=== PATIENT | male | born 1990 | race Caucasian/White ===

== ENCOUNTER 2022-03-03 06:27 | Outpatient (REF) | payer BC, SELFPAY ==
[2022-03-03 11:41] LABS: MANUAL DIFF FLAG NO
[2022-03-03 11:44] LABS: Appearance Urine CLEAR; Color Urine YELLOW; Glucose Urine UA NEG (NEG); Leukocyte Esterase Urine NEG (NEG); Nitrite Urine NEG (NEG); PH 6.5 (5.0-8.0); UACC Culture Trigger NO; Urine Blood TRACE (NEG); Urine Ketones NEG (NEG); Urine Protein NEG (NEG-TRACE)
[2022-03-03 11:51] LABS: Basophils Percent Auto 0.4 % (0-2); Eosinophils Absolute Auto 0.1 X10*3/uL (0.0-0.4); Hematocrit 46.7 % (42.0-52.0); Hemoglobin 15.9 g/dl (14.0-18.0); Lymphocytes Absolute Auto 1.9 X10*3/uL (1.2-4.9); Lymphocytes Percent Auto 39.5 % (20-40); Mean Corpuscular Hemoglobin 32.3 pg (27.0-33.0); Mean Corpuscular Volume 94.9 fL (80.0-98.0); Monocytes Absolute Auto 0.4 X10*3/uL (0.1-1.2); Monocytes Percent Auto 8.3 % (2-11); Neutrophils Absolute Auto 2.3 x10*3/uL (2.0-8.3); Neutrophils Percent Auto 48.8 % (45-73); Platelet Count 254 X10*3/uL (160-400); Red Blood Count 4.92 X10*6/uL (4.60-5.80); Red Cell Distribution Width 11.9 % (11.0-16.0); White Blood Count 4.7 X10*3/uL (4.8-10.8)
[2022-03-03 12:21] LABS: Alanine Aminotransferase 22 U/L (0-40); Albumin Level 4.5 g/dL (3.5-5.0); Alkaline Phosphatase 49 U/L (39-117); Anion Gap 12 (12-20); Aspartate Amino Transferase 20 U/L (5-37); Bilirubin Total 0.7 mg/dL (0.0-1.0); Blood Urea Nitrogen 15 mg/dL (9-16); Calcium 9.5 mg/dL (8.4-10.2); Carbon Dioxide 26 mmol/L (22-29); Chloride 105 mmol/L (96-108); Cholesterol 215 mg/dL; Estimated Glomerular Filt Rate > 60; Glucose Fasting 92 mg/dL (60-99); HDL Cholesterol 78 mg/dL; LDL Cholesterol Calculated 117 mg/dl; Potassium 4.4 mmol/L (3.3-5.1); Sodium 139 mmol/L (135-145); Total Protein 7.3 g/dL (6.5-8.0); Triglycerides 104 mg/dL; WBC Urine 0-2 /HPF (0-4)
[2022-03-03 12:26] LABS: TSH reflex Free T4 0.29 uIU/mL (0.32-4.0)
[2022-03-03 13:02] LABS: Free T4 (Free Thyroxine) 0.94 ng/dL (0.71-1.85)
== END 2022-03-03 06:28 | disposition home or self-care (01) ==
LOC: HO.HMGCLDS 06:27
PROVIDERS: PCP Nurse Practitioner Family; Visit Provider Nurse Practitioner Family
DX: Z00.00 Encounter for general adult medical examination without abnormal findings (principal); R79.89 Other specified abnormal findings of blood chemistry
CPT/HCPCS: 36415; 80053; 80061; 81001; 84439; 84443; 85025

== ENCOUNTER 2022-03-08 06:02 | Outpatient (REF) | payer BC, SELFPAY ==
[2022-03-09 08:56] LABS: Triiodothyronine T3 Free 3.9 pg/mL (2.3-4.2)
[2022-03-09 13:20] LABS: Thyroid Peroxidase Antibodies 1 IU/mL (<9)
[2022-03-11 17:16] LABS: Thyrotropin Receptor Antibody <1.00 IU/L (<=2.00)
== END 2022-03-08 06:03 | disposition home or self-care (01) ==
LOC: HO.HMGCLDS 06:02
PROVIDERS: Visit Provider Nurse Practitioner Family
DX: R79.89 Other specified abnormal findings of blood chemistry (principal)
CPT/HCPCS: 36415; 83520; 84443; 84481; 86376

== ENCOUNTER 2022-03-31 14:51 | Outpatient (REF) | payer BC, SELFPAY | END 2022-03-31 14:52 | disposition home or self-care (01) | LOC: HO.US 14:51 | PROVIDERS: Visit Provider Nurse Practitioner Family | DX: Z13.89 Encounter for screening for other disorder (principal) ==

== ENCOUNTER 2022-03-31 14:53 | Outpatient (REF) | payer BC, SELFPAY ==
--- NOTE | ~2022-03-31 | US_ITS ---
EXAMINATION: US THYROID CLINICAL INFORMATION: Low TSH. COMPARISON: None TECHNIQUE: Linear transducer grayscale and color Doppler examination with attention to the region of the thyroid. FINDINGS: SIZE: Measurements of the thyroid lobes and nodules are given in sagittal, anteroposterior and transverse dimensions respectively. Right Thyroid Lobe: 5.01 x 1.37 x 1.49 cm, volume 5.38 mL. Parenchyma: The gland echotexture is homogeneous. Thyroid vascularity is normal. Left Thyroid Lobe: 5.89 x 1.53 x 1.71 cm, volume 8.06 mL. Parenchyma: The gland echotexture is homogeneous. Thyroid vascularity is normal. Isthmus: 0.31 cm in maximum AP dimension. Estimated total number of nodules greater than or equal to 1 cm: 0. [employer] nodules are described as follows: 1. Location: Left superior. Size: 0.40 x 0.23 x 0.41 cm, volume 0.02 mL. Nodule characteristics: Composition: Cystic(0). ACR TI-RADS total points: 0 ACR TI-RADS category: 1 2. Location: Left mid. Size: 0.31 x 0.22 x 0.22 cm, volume 0.008 mL. Nodule characteristics: Composition: Cystic(0). ACR TI-RADS total points: 0 ACR TI-RADS category: 1 3. Location: Left mid. Size: 0.35 x 0.17 x 0.19 cm, volume 0.006 mL. Nodule characteristics: Composition: Cystic(0). ACR TI-RADS total points: 0 ACR TI-RADS category: 1 NODES: No lymphadenopathy is seen in the tissue surrounding the thyroid gland. US/US thyroid IMPRESSION: No further routine follow-up is needed. ACR TI-RADS RECOMMENDATION REFERENCE: Ultrasound-guided fine-needle aspiration, followup ultrasound, no further follow up. * TR1 (0 point) and TR 2 (2 points): No FNA or follow up * TR3 (3 points): FNA if more than or equal to 2.5 cm in maximum dimension, followup ultrasound in 1, 3 and 5 years if 1.5 to 2.4 cm in maximum dimension. * TR4 (4-6 points): FNA if more than or equal to 1.5 cm in maximum dimension, followup ultrasound in 1, 2, 3 and 5 years if 1 to 1.4 cm in maximum dimension. * TR5 (more than or equal to 7 points): FNA if more than or equal to 1 cm in maximum dimension, followup ultrasound every year for 5 years if 0.5 to 0.9 cm in maximum dimension. * TR3, TR4 or TR5 nodules that are below the size threshold for follow up receive no follow up.
--- NOTE | ~2022-03-31 | US_ITS ---
EXAMINATION: US SCROTUM CLINICAL INFORMATION: Testicular pain, unspecified. COMPARISON: None TECHNIQUE: A sonogram of the scrotum was performed assessing fan-scale appearance and color Doppler flow. Spectral Doppler analysis of the arterial and venous flow were performed in the testes bilaterally. FINDINGS: RIGHT: Right testicle measures 5.06 x 2.38 x 3.35 cm, volume 21.1 mL. No focal testicular parenchymal lesions are visualized. Spectral Doppler analysis of the arterial and venous flow is normal in the right testis. Right epididymal head is normal in size. Right epididymal Doppler flow is normal. Small right hydrocele. LEFT: Left testicle measures 4.78 x 2.15 x 3.77 cm, volume 20.3 mL. No focal testicular parenchymal lesions are visualized. Spectral Doppler analysis of the arterial and venous flow is normal in the left testis. Left epididymal head cyst measures 0.8 x by 0.6 x 1.5 cm. Left epididymal Doppler flow is normal. Small left hydrocele. US/US scrotum IMPRESSION: Left epididymal head cyst. Small bilateral hydroceles.
== END 2022-03-31 14:54 | disposition home or self-care (01) ==
LOC: HO.HMGCX 14:53
PROVIDERS: Visit Provider Nurse Practitioner Family
DX: N50.819 Testicular pain, unspecified (principal); R79.89 Other specified abnormal findings of blood chemistry
CPT/HCPCS: 76536; 76870

== ENCOUNTER 2023-07-22 17:57 | Emergency (ER) | payer BC, SELFPAY ==
--- NOTE | ~2023-07-22 | XR_ITS ---
EXAMINATION: XR HAND, LEFT CLINICAL INFORMATION: Pain second metacarpal. COMPARISON: None available. TECHNIQUE: PA, lateral, and oblique views of the left hand. FINDINGS: The bones and soft tissues are normal. No fracture. Alignment is anatomic. Joint spaces are maintained. No erosions or soft tissue calcifications. XR/XR hand LT min 3V IMPRESSION: Normal left hand. Especially no fracture identified along the second metacarpal where a marker has been placed
[2023-07-22 18:13] VITALS: BP 135/94; PULSE 86; RESP 16; TEMP 37.4; O2SAT 98; BMI 27.1
--- NOTE | 2023-07-22 18:15 | ED.GENADULT ---
HPI - General Adult General Chief complaint: Skin/Abscess/Foreign Body Stated complaint: Nail punctured to L hand/Sent from urgent care Time Seen by Provider: 07/22/23 19:16 Source: patient, RN notes reviewed and old records reviewed Mode of arrival: ambulatory Limitations: no limitations History of Present Illness HPI narrative: 32-year-old male presents for evaluation of a puncture wound to the left hand. Patient reports that he accidentally shot the nail gun into the back was left hand He went to Urgent Care, had x-rays and was told that he had a fracture of his left 2nd metacarpal He was given Toradol 60 mg IM, a tetanus booster and was prescribed cephalexin He was sent here to be evaluated for ?surgical washout necessary and orthopedic follow-up. He still complains of mild pain despite the Toradol Related Data Home Medications Medication Instructions Recorded Confirmed prednisone 10 mg tablet mg PO 11/25/22 11/25/22 Previous Rx's Medication Instructions Recorded hydrocortisone 2.5 % topical cream 1 appl topical BID PRN skin 11/25/22 irritation #30 grams omeprazole 20 mg capsule,delayed 20 mg PO DAILY #90 caps 01/11/23 release Allergies Allergy/AdvReac Type Severity Reaction Status Date / Time No Known Allergies Allergy Verified 11/25/22 15:43 Review of Systems Constitutional: Constitutional: Denies chills and Denies fever(s) Musculoskeletal: Musculoskeletal: Reports arthralgias and Reports joint swelling Integumentary/Breasts: Skin/Breast: Reports wounds PMFSH Family History Family History Father No problems noted. Mother No problems noted. Maternal Grandmother Diabetes Social History Social History Housing: House Patient Tobacco Use Status: Former Tobacco user e-Cigarette/Vaping Use: Former Use Advance Directives: No service: No Current occupational status: employed Cognitive needs: No Hearing needs: No Vision needs: No Physical Exam ED Vital Signs: Vital Signs - 24 hr 07/22/23 18:13 Temperature 99.4 F Pulse Rate 86 Respiratory Rate 16 Blood Pressure 135/94 H Pulse Oximetry 98 Oxygen Delivery Method Room Air BMI result Body Mass Index 27.1 Const General: healthy appearing, comfortable, no acute distress, alert and awake Nutritional Appearance: well nourished Orientation/consciousness: patient oriented x3 HENMT Head: Yes normocephalic and Yes atraumatic Eyes Eyelids: Yes eyelids normal Conjunctivae: conjunctivae normal Sclerae: sclerae normal Corneas: corneas normal Pupils: Equal, round and reactive pupils present EOM: EOMs intact bilaterally Neck Neck: Yes full ROM Resp Effort & Inspection: normal respiratory effort, able to speak in complete sentences and not labored Skin General skin exam: elasticity normal Neuro General: patient oriented x3 Cranial nerves: Yes Equal, round and reactive pupils present and Yes Bilaterally intact EOM present Cognition (Neuro): normal cognition Extrem Other: Small puncture wound to the distal aspect of the left 2nd metacarpal. No palpable deformities. The patient is tender over this area. He is able to flex and extend the left 2nd finger Course Course Course Narrative: RME- patient accidentally shot himself in the right 2nd MCP with a nail gun. He went to urgent care prior to arrival he had x-rays and report a right 2nd metacarpal fracture. He soaked the area, he was prescribed antibiotics. They gave him Toradol 60 mg IM and a tetanus booster. Patient will likely require splinting and orthopedic follow-up. He states that the area was cleaned already at Urgent Care Medical Decision Making Medical Decision Making MDM Narrative: 32-year-old male presents for evaluation rib puncture wound. I repeated x-rays here which did not show any obvious fracture specifically in the area of the left 2nd MCP joint. The wound was already cleaned out and soaked at Urgent Care, he was given a tetanus booster and prescribed antibiotics he has paperwork to confirm this. The patient was put in a premade/Velcro splint for protection he was given Orthopedic follow-up. No further workup necessary at this time. Differential Diagnosis Differential Diagnoses: The differential diagnosis associated with the presentation includes Puncture wound Contusion And fracture Open fracture Radiology Impression Discussion of test interpretation with radiology: I have reviewed the radiologist's reading. Radiologist Impression: Normal left hand, specifically no left 2nd metacarpal fracture Discharge Plan Discharge Clinical Impression: Puncture wound of finger of left hand Patient Disposition: Home, Self-Care Instructions: Puncture Wound (ED) Additional Instructions: Your x-ray shows no evidence of fracture. It is still reasonable to take the antibiotics given the puncture wound You may so follow-up with hand surgery at the number provided Return for new or worsening symptoms, especially if you develops fever, redness, increasing swelling or pain or drainage from the area Prescriptions: No Action omeprazole 20 mg capsule,delayed release(DR/EC) 20 mg PO DAILY Qty: 90 1RF prednisone 10 mg tablet PO hydrocortisone 2.5 % cream 1 appl topical BID PRN (Reason: skin irritation) Qty: 30 0RF Referrals: Tammy Murphy MD [Physician] - (puncture wound to right hand)
== END 2023-07-22 19:36 | disposition home or self-care (01) ==
PROVIDERS: Emergency Provider Emergency Medicine; PCP Nurse Practitioner Family
DX: S61.231A Puncture wound without foreign body of left index finger without damage to nail, initial encounter (principal); W29.4XXA Contact with nail gun, initial encounter; Y93.9 Activity, unspecified; Y92.9 Unspecified place or not applicable; Y99.9 Unspecified external cause status
CPT/HCPCS: 73130; 99282; 99283

== ENCOUNTER 2023-07-26 09:10 | Outpatient (REF) | payer BC, SELFPAY ==
--- NOTE | ~2023-07-26 | XR_ITS ---
EXAMINATION: XR HAND, LEFT CLINICAL INFORMATION: Pain in unspecified knee COMPARISON: Left hand 07/22/2023 TECHNIQUE: PA, lateral, and oblique views of the left hand. FINDINGS: Mild degenerative changes in the first carpometacarpal joint with joint space narrowing and hypertrophic change. There is sharp concavity along the radial aspect of the second metacarpal head. Just proximal to this concavity there is a 6 mm ossific fragment along the distal radial aspect of the second metacarpal shaft, concerning for a displaced fracture, although an accessory ossicle/chronic process could also be considered. XR/XR hand LT min 3V IMPRESSION: A sharp concavity along the radial aspect of the second metacarpal head. Just proximal to this concavity there is a 6 mm ossific fragment along the distal radial aspect of the second metacarpal shaft, concerning for a displaced avulsion fracture, although an accessory ossicle/chronic process could also be considered. Correlation with the clinical exam recommended to determine further management. This study was presented today July 27, 2023 at 12:07 PM for interpretation. PSA staff will provide results to referring provider at this time.
== END 2023-07-26 09:11 | disposition home or self-care (01) ==
LOC: HO.HOSX 09:10
PROVIDERS: Visit Provider Physician Assistant
DX: S62.601B Fracture of unspecified phalanx of left index finger, initial encounter for open fracture (principal)
CPT/HCPCS: 73130

== ENCOUNTER 2023-07-26 09:19 | Outpatient (AMB) | payer BC, SELFPAY ==
--- NOTE | 2023-07-26 09:36 | A.OFFVIS_ITS ---
Intake Vital Signs 07/26/23 09:37 Height 6 ft Weight 200 lb BMI 27.1 Intake Visit Reasons: EDF/U- L hand Puncture 2nd MCP joint Intake Note: Kevin is a 32 year old right hand dominant male who presents today for a evaluation of his left hand injury, DOI 07/22/23. Patient reports that he accidentally shot the nail gun into the back of his hand. He states that his ROM is getting better, however is still experiencing numbness and tingling. Pateint reports having pain with movement. Allergies No Known Allergies Allergy (Verified 07/26/23 09:41) HPI EDF/U- L hand Puncture 2nd MCP joint HPI Details 32-year-old right hand dominant male who presents in the office today, as a new patient, for an evaluation of a left hand puncture wound. The patient presented to the ED on 07/22/2023 status post accidentally shooting a nail gun into the back of his left hand. Per the ED note; he was originally seen in Urgent Care who told him he had a 2nd metacarpal fracture. He was prescribed toradol and cephalexin. He was placed in a velcro splint and referred to orthopedics. While in the office today he reports his ROM is getting better. However, he is still experiencing numbness and tingling. He claims to have pain with movement. [facility] Family History Father No problems noted. Mother No problems noted. Maternal Grandmother Diabetes Social History Housing: House Patient Tobacco Use Status: Former Tobacco user e-Cigarette/Vaping Use: Former Use service: No Current occupational status: employed Cognitive needs: No Hearing needs: No Vision needs: No Review of Systems Const All systems reviewed & are unremarkable except as noted in HPI and below Physical Exam Vital Signs: BMI result Body Mass Index 27.1 Const General: cooperative and no acute distress Orientation/consciousness: patient oriented x3 Resp Effort & Inspection: normal respiratory effort and able to speak in complete sentences Cardio Peripheral pulses: Peripheral pulses 2+ throughout Skin General skin exam: no rashes or lesions noted Neuro General: patient oriented x3 Extrem Other: Left hand: Small puncture wound located over the index finger at the MCP. Mild surrounding edema. No erythema or drainage. No signs of infection. Index finger is lacking 3 cm from making a closed fist. No laxity with varus or valgus stress at the MCP. The remainder of the digits perform full finger flexion, extension, abduction, adduction without deficit. Sensation intact. Capillary refill is brisk. Radial pulse intact. Assessment & Plan Assessment & Plan (1) Puncture wound of left index finger: Code(s): S61.231A - Puncture wound without foreign body of left index finger without damage to nail, initial encounter (2) Fracture of phalanx of left index finger: Comment: index finger metacarpal head fracture. No intra-articular involvement. Code(s): S62.601A - Fracture of unspecified phalanx of left index finger, initial encounter for closed fracture Qualifiers: Encounter type: initial encounter Fracture alignment: nondisplaced Fracture type: open Phalanx: unspecified phalanx Qualified Code(s): S62.601B - Fracture of unspecified phalanx of left index finger, initial encounter for open fracture Plan Mr. Ayon is a 32-year-old right hand dominant male who presents in the office today, as a new patient, for an evaluation of a left hand puncture wound. The patient presented to the ED on 07/22/2023 status post accidentally shooting a nail gun into the back of his left hand. Per the ED note; he was originally seen in Urgent Care who told him he had a 2nd metacarpal fracture. He was prescribed toradol and cephalexin. He was placed in a velcro splint and referred to orthopedics. While in the office today he reports his ROM is getting better. However, he is still experiencing numbness and tingling. He claims to have pain with movement. I discussed the case and reviewed the imagining with Dr. Murphy and a collaborative treatment plan was made. We did discuss the potential for possible I&D. However, the patient has been on an antibiotic and the puncture site is clean, dry, and intact with no signs of infection. Therefore, we have decided to continue with oral antibiotics and keep a close follow up. He does not need a finger splint or a wrist brace. He was encouraged to work on gentle ROM. He was given an out of work note. Follow up will be in 1 week for a wound check and repeat x-rays, or sooner if needed. X-rays of the left hand obtained while in the office today and reviewed by me, Maryjo Hernandez PA-C, revealed repeat demonstration of index finger metacarpal head fracture. No intra-articular involvement. X-rays of the left hand, obtained on 07/22/2023, revealed: Normal left hand. Especially no fracture identified along the second metacarpal where a marker has been place. Orders: Orders XR hand LT min 3V Today M79.643 - Pain in unspecified hand Patient Instructions: Scribed for Maryjo Hernandez PA-C by Radha Muhammad medical pathologist, on 07/26/2023 at 9:21 am, EST. Coding Level of Care Code New Pt Level 4 (02987) Diagnoses Puncture wound of left index finger S61.231A Open nondisplaced fracture of phalanx of left index finger, unspecified phalanx, initial encounter S62.601B Encounter type: initial encounter Fracture alignment: nondisplaced Fracture type: open Phalanx: unspecified phalanx
[2023-07-26 09:37] VITALS: BMI 27.1
== END 2023-07-26 10:10 | disposition home or self-care (01) ==
PROVIDERS: PCP Nurse Practitioner Family; Visit Provider Physician Assistant
DX: S61.231A Puncture wound without foreign body of left index finger without damage to nail, initial encounter (principal)
CPT/HCPCS: 99204

== ENCOUNTER 2023-08-02 10:09 | Outpatient (AMB) | payer BC, SELFPAY ==
[2023-08-02 10:12] VITALS: BMI 27.1
--- NOTE | 2023-08-02 10:12 | A.OFFVIS_ITS ---
Intake Vital Signs 08/02/23 10:12 Height 6 ft Weight 200 lb BMI 27.1 Intake Visit Reasons: OV-L hand Puncture 2nd MCP joint Intake Note: Kevin is a 32 year old right hand dominant male who presents today for a evaluation of his left hand injury, DOI 07/22/23. Patient reports still having pain with movement. Denies numbness and tingling. Allergies No Known Allergies Allergy (Verified 08/02/23 10:16) HPI OV-L hand Puncture 2nd MCP joint HPI Details 32-year-old right hand dominant male who presents in the office today for a wound check and follow up status post accidentally shooting a nail gun into the back of his left hand, which occurred on 07/22/2023. The patient reports he is still having pain with movement. He denies numbness or tingling. [facility] Family History Father No problems noted. Mother No problems noted. Maternal Grandmother Diabetes Social History Housing: House Patient Tobacco Use Status: Former Tobacco user e-Cigarette/Vaping Use: Former Use service: No Current occupational status: employed Cognitive needs: No Hearing needs: No Vision needs: No Review of Systems Const All systems reviewed & are unremarkable except as noted in HPI and below Physical Exam Vital Signs: BMI result Body Mass Index 27.1 Const General: cooperative, healthy appearing and no acute distress Resp Effort & Inspection: normal respiratory effort and able to speak in complete sentences Cardio Rate: regular rate Peripheral pulses: Peripheral pulses 2+ throughout GI Palpation (GI): Soft to palpation Skin Lesions: no lesions Rashes: no rashes Extrem Other: Left hand: Small puncture wound located over the index finger at the MCP. Mild surrounding edema. No erythema or drainage. No signs of infection. Index finger is lacking 2 cm from making a closed fist. No laxity with varus or valgus stress at the MCP. The remainder of the digits perform full finger flexion, extension, abduction, adduction without deficit. Sensation intact. Capillary refill is brisk. Radial pulse intact. Assessment & Plan Assessment & Plan (1) Puncture wound of left index finger: Code(s): S61.231A - Puncture wound without foreign body of left index finger without damage to nail, initial encounter (2) Fracture of phalanx of left index finger: Comment: index finger metacarpal head fracture. No intra-articular involvement. Code(s): S62.601A - Fracture of unspecified phalanx of left index finger, initial encounter for closed fracture Qualifiers: Encounter type: initial encounter Fracture alignment: nondisplaced Fracture type: open Phalanx: unspecified phalanx Qualified Code(s): S62.601B - Fracture of unspecified phalanx of left index finger, initial encounter for open fracture Plan Mr. Aoyn is a 32-year-old right hand dominant male who presents in the office today for a wound check and follow up status post accidentally shooting a nail gun into the back of his left hand, which occurred on 07/22/2023. The patient reports he is still having pain with movement. He denies numbness or tingling. The patient will continue his antibiotics until the course is complete. He has no signs of infection at this time. He was educated on signs of infection, which are as follows but not limited to erythema, edema, drainage, or warmth. If he is to experience any of these symptoms he is to contact the office immediately or present to the ED. I did offer OT but the patient declined at this time. Follow up will be PRN, or sooner if needed. Patient Instructions: Scribed for Maryjo Hernandez PA-C by Radha Muhammad medical office assistant, on 08/02/2023 at 10:10 am, EST. Coding Level of Care Code Est Pt Level 3 (45303) Diagnoses Puncture wound of left index finger S61.231A Open nondisplaced fracture of phalanx of left index finger, unspecified phalanx, initial encounter S62.601B Encounter type: initial encounter Fracture alignment: nondisplaced Fracture type: open Phalanx: unspecified phalanx
== END 2023-08-02 10:22 | disposition home or self-care (01) ==
PROVIDERS: PCP Nurse Practitioner Family; Visit Provider Physician Assistant
DX: S61.231A Puncture wound without foreign body of left index finger without damage to nail, initial encounter (principal)
CPT/HCPCS: 99213

== ENCOUNTER → 2023-08-02 10:09 | Outpatient (BNVA) | payer BC, SELFPAY | PROVIDERS: PCP Nurse Practitioner Family; Visit Provider Physician Assistant ==

== ENCOUNTER 2024-03-13 08:03 | Outpatient (AMB) | payer BC, SELFPAY ==
[2024-03-13 08:09] VITALS: BP 128/84; PULSE 86; TEMP 37.4; O2SAT 97; BMI 26.5
--- NOTE | 2024-03-13 08:09 | MHC.OFFWIV ---
Intake Vital Signs 03/13/24 08:09 Height 6 ft Weight 195 lb 4 oz BMI 26.5 BP 128/84 Blood Pressure Location Lt brachial Position Sitting Pulse 86 Pulse Source Pulse Oximeter Temp 99.4 F Temp Source Oral Pulse Oximetry (%) 97 Oxygen Delivery Method Room Air Intake Visit Reasons: EP migraine fever 4 days Intake Note: Pt is here today for a migraine for 4 days, pt mentioned he been having ongoing fevers. This morning fever was 100 Patient Tobacco Use Status: Former Tobacco user Allergies No Known Allergies Allergy (Verified 03/13/24 08:17) Do you need a note to return to daycare/school/sports/work: No HPI HPI Comments History of Present Illness Details Patient is a 33-year-old male complaining of 4 days of a throbbing headache which he describes as a migraine. He also states he has fevers up to 102F that resolve with Tylenol, chills, nausea and some shortness of breath on exertion. He denies any actual vomiting or diarrhea, sore throat or chest congestion. He states his headache is worse when he coughs. He also has some associated neck stiffness. He has been using hot and cold compresses on his neck, he took some Excedrin Migraine that seemed to help his headache. He states his daughters also sick with a similar headache and vomiting and she went to the doctors where they tested her for flu COVID and RSV and all 3 were negative. [facility] Family History Father No problems noted. Mother No problems noted. Maternal Grandmother Diabetes Social History Housing: House Patient Tobacco Use Status: Former Tobacco user e-Cigarette/Vaping Use: Former Use service: No Current occupational status: employed Cognitive needs: No Hearing needs: No Vision needs: No Review of Systems Const All systems reviewed & are unremarkable except as noted in HPI and below Physical Exam Vital Signs: Last Vital Signs Temp 99.4 F 03/13/24 08:09 Pulse 86 03/13/24 08:09 BP 128/84 03/13/24 08:09 Pulse Ox 97 03/13/24 08:09 Oxygen Delivery Method Room Air 03/13/24 08:09 BMI result Body Mass Index 26.5 Const General: cooperative, healthy appearing, comfortable and no acute distress Orientation/consciousness: patient oriented x3 Limitations: no limitations HEENT Head: Yes normal to inspection Ears: external ears normal General nose exam: Normal external nose present, Normal nares present and No nasal discharge present Face and sinus: Yes normal facial exam and Yes sinuses nontender Mouth: Normal oral and palatal mucosa present and moist mucous membranes Throat: Yes tonsils normal, Yes uvula midline and Yes posterior oropharynx abnormal (erythema) Eyes General: appearance normal, both eyes and all related structures Neck Neck: Yes normal visual inspection Resp Effort & Inspection: normal respiratory effort, able to speak in complete sentences, Actively coughing, no respiratory distress, not tachypneic, no tripod positioning and no use of accessory muscles Auscultation: clear to auscultation bilaterally Cardio Rate: regular rate Rhythm: regular rhythm Heart sounds: normal S1 and S2 Back/Spine/Pelvis Other: negative Brudzinski sign Cervical Spine: cervical muscular tenderness and No Cervical spine tenderness Skin General skin exam: no rashes or lesions noted Neuro General: patient oriented x3 Extrem General: Yes normal to inspection and Yes no clubbing, cyanosis or edema Assessment & Plan Assessment & Plan (1) Headache: Code(s): R51.9 - Headache, unspecified Qualifiers: Headache chronicity pattern: acute headache Headache type: unspecified Intractability: not intractable Qualified Code(s): R51.9 - Headache, unspecified Plan: Vital signs are stable, patient is well-appearing. Advised likely a viral syndrome, we will test for flu COVID and RSV. Recommended if symptoms get worse or fevers unable to be controlled with Tylenol she got to the emergency department for further workup. Plan see above Orders: Orders SARS-CoV2/FLU/RSV Today J06.9 - Acute upper respiratory infection, unspecified Coding Level of Care Code Est Pt Level 3 (80390) Diagnoses Acute nonintractable headache, unspecified headache type R51.9 Headache chronicity pattern: acute headache Headache type: unspecified Intractability: not intractable
== END 2024-03-13 08:50 | disposition home or self-care (01) ==
PROVIDERS: PCP Nurse Practitioner Family; Visit Provider Physician Assistant
DX: R51.9 Headache, unspecified (principal)
CPT/HCPCS: 99213

== ENCOUNTER 2024-03-13 08:38 | Outpatient (REF) | payer BC, SELFPAY ==
[2024-03-13 10:58] LABS: Influenza A PCR NEGATIVE (Negative); Influenza B PCR NEGATIVE (Negative); Resp Syncy Virus RNA Qual PCR NEGATIVE (Negative); SARS COV2 PCR INHOUSE NEGATIVE (Negative)
== END 2024-03-13 08:39 | disposition home or self-care (01) ==
LOC: HO.LAB 08:38
PROVIDERS: Visit Provider Physician Assistant
DX: J06.9 Acute upper respiratory infection, unspecified (principal)
CPT/HCPCS: 0241U

== ENCOUNTER 2024-03-14 07:00 | Emergency (ER) | payer BC, SELFPAY ==
--- NOTE | ~2024-03-14 | XR_ITS ---
EXAMINATION: XR CHEST CLINICAL INFORMATION: Cough and fever COMPARISON: None available. TECHNIQUE: 2 views of the chest were obtained. FINDINGS: Lungs are well expanded. There is airspace opacity in the anterior left upper lobe. No pleural effusion. Cardiomediastinal silhouette has normal size and contour. The visualized bones and upper abdomen are unremarkable. XR/XR chest 2V IMPRESSION: Pneumonia of left upper lobe. No pleural effusion.
[2024-03-14 07:02] VITALS: BP 148/88; PULSE 84; RESP 18; TEMP 37.1; O2SAT 97; BMI 26.7
--- NOTE | 2024-03-14 07:13 | ED.URI ---
HPI - URI/Sore Throat General Chief Complaint: Upper Respiratory Symptoms Stated Complaint: Fever, headache 5 days Time Seen by Provider: 03/14/24 07:13 Source: patient and old records reviewed Mode of arrival: ambulatory Limitations: no limitations History of Present Illness ED Provider: DIANA MCCAIN Narrative: 33 yo male with PMH of GERD, HTN, headaches here with c/o 5 days of chills night sweats headaches cough and sputum production with chest congestion. No travel, no sick contacts. Went to yesterday negative viral panel. He notes when he coughs his neck and head hurt. He took excedrin this AM. He has no pain with moving neck but notes it feels tight at times. MD elicited complaint: fever, cough and other (headaches, chest congestion) Onset (ago): day(s) (5) Consistency: intermittent Severity: moderate Description of mucous: clear Able to tolerate fluids by mouth: Yes Exacerbating factors: other (coughing) Relieving factors: nothing Associated symptoms: fever, chills, myalgias, headache and cough Treatments prior to arrival: acetaminophen and aspirin Related Data Previous Rx's ?Medication ?Instructions ?Recorded omeprazole 20 mg capsule,delayed 20 mg PO DAILY #90 caps 01/11/23 release cefuroxime axetil 500 mg tablet 500 mg PO BID 7 days #14 tabs 03/14/24 doxycycline hyclate 100 mg capsule 100 mg PO BID 7 days #14 caps 03/14/24 Allergies Allergy/AdvReac Type Severity Reaction Status Date / Time No Known Allergies Allergy Verified 03/14/24 07:06 Review of Systems Review of Systems: Constitutional : pos Fever, pos Chills, No Fatigue ENT/Mouth : No sore throat, No Rhinorrhea Eyes: No Eye Pain, No Swelling, No Redness Cardiovascular : No Chest Pain, No SOB, No Dyspnea on Exertion Respiratory : pos Cough, pos Sputum Gastrointestinal : No Nausea, No Vomiting, No Diarrhea, No abdominal Pain Genitourinary : No Dysuria, No Urinary Frequency, No Hematuria, Musculoskeletal : No joint pain, pos Myalgias, No Joint Swelling Skin : No Skin Lesions, No rash Neuro : No Weakness, No Numbness, No Dizziness, positive Headache Psych : No Anxiety/Panic, No Depression All other systems reviewed and are negative PMFSH Past Medical History Attestation statement: The following information was validated with the patient. Source: old records reviewed Medical History HTN (hypertension) GERD (gastroesophageal reflux disease) Headache Family History Family History Father No problems noted. Mother No problems noted. Maternal Grandmother Diabetes Social History Social History Housing: House Patient Tobacco Use Status: Former Tobacco user e-Cigarette/Vaping Use: Former Use Advance Directives: No Advance Directives Information Provided: Yes service: No Current occupational status: employed Cognitive needs: No Hearing needs: No Vision needs: No Physical Exam Vital Signs: Vital Signs: Last Vital Signs Temp 98.8 F 03/14/24 07:19 Pulse 83 03/14/24 07:19 Resp 18 03/14/24 07:19 BP 148/100 H 03/14/24 07:19 Pulse Ox 98 03/14/24 07:19 O2 Del Method Room Air 03/14/24 07:19 BMI result Body Mass Index 26.7 Appearance: Alert. Oriented X3. No acute distress. Eyes: Pupils equal, round and reactive to light. ENT: Pharynx normal. TMs normal bilaterally Neck: Normal inspection. Neck supple. no meningeal signs neg kernigs no signs of irritation moving neck or bending legs has soft supple neck CVS: Normal heart rate and rhythm. Pulses normal. Respiratory: No respiratory distress. Breath sounds normal. Abdomen: Soft and nontender. Skin: Skin warm and dry. Normal skin color. Normal skin turgor. Extremities: No lower extremity edema. Neuro: Oriented X 3. No motor deficit. No sensory deficit. Medications Administered Discontinued Medications Generic Name Dose Route Start Last Admin Trade Name Freq PRN Reason Stop Dose Admin Sodium Chloride 1,000 mls @ 999 mls/hr 03/14/24 07:23 03/14/24 07:36 Ns IV 03/14/24 08:23 999 mls/hr .Q1H1M ONE Administration Medical Decision Making Medical Decision Making MDM Narrative: 33 yo male with PMH of GERD, HTN, headaches here with c/o headaches, cough, chest congestion fevers and chills x 5 days at this time given complaint will obtain labs, CXR, viral panel, cultures and tick panel. He has no meningeal signs on exam at this time and abdomen is benign. Differential Diagnosis Differential Diagnoses: The differential diagnosis associated with the presentation includes URI, viral infection, tick borne illness Admission/Observation Consideration of admission/observation: Escalation of care including admission/observation considered labs and VS reassuring able to tolerate PO can be managed as outpatient Lab Data MDM Lab Attestation statement: I reviewed the patient's lab results. 03/14/24 07:35 03/14/24 07:35 Labs: Lab Results 03/14/24 03/14/24 Range/Units 07:11 07:35 WBC 7.5 (4.8-10.8) X10*3/uL RBC 4.46 L (4.60-5.80) X10*6/uL Hgb 14.2 (14.0-18.0) g/dl Hct 39.9 L (42.0-52.0) % MCV 89.5 (80.0-98.0) fL MCH 31.8 (27.0-33.0) pg MCHC 35.6 (31.0-36.0) g/dl RDW 11.5 (11.0-16.0) % Plt Count 195 (160-400) X10*3/uL MPV 8.3 L (9.4-12.4) fL Immature Gran % (Auto) 0.3 (0.0-0.4) % Neut % (Auto) 64.3 (45-73) % Lymph % (Auto) 20.4 (20-40) % [place] % (Auto) 14.6 H (2-11) % Eos % (Auto) 0.1 (0-4) % Baso % (Auto) 0.3 (0-2) % Lymph # (Auto) 1.5 (1.2-4.9) X10*3/uL [place] # (Auto) 1.1 (0.1-1.2) X10*3/uL Eos # (Auto) 0.0 (0.0-0.4) X10*3/uL Baso # (Auto) 0.0 (0.0-0.2) X10*3/uL Abs Immat Gran (auto) 0.02 (0.00-0.03) X10*3/uL Absolute Neuts (auto) 4.8 (2.0-8.3) x10*3/uL Absolute Nucleated RBC 0.000 (0.0-0.012) X10*3/uL Nucleated RBC % (auto) 0.0 (0.0-0.2) /100WBC Sodium 135 (135-145) mmol/L Potassium 3.9 (3.3-5.1) mmol/L Chloride 101 (96-108) mmol/L Carbon Dioxide 27 (22-29) mmol/L Anion Gap 11 L (12-20) BUN 13 (9-16) mg/dL Creatinine 1.32 (0.5-1.4) mg/dL Estim Creat Clear Calc 87.3 Estimated GFR > 60 Random Glucose 105 (60-115) mg/dL Lactic Acid 0.9 (0.5-2.0) mmol/L Calcium 9.8 (8.4-10.2) mg/dL Total Bilirubin 0.5 (0.0-1.0) mg/dL Direct Bilirubin 0.2 (0.0-0.5) mg/dL AST 20 (5-37) U/L ALT 24 (0-40) U/L Alkaline Phosphatase 62 (39-117) U/L Total Protein 7.5 (6.5-8.0) g/dL Albumin 4.3 (3.5-5.0) g/dL Monoscreen Negative (Negative) Influenza Type A (PCR) NEGATIVE (Negative) Influenza Type B (PCR) NEGATIVE (Negative) RSV RNA Qual (PCR) NEGATIVE (Negative) SARS-CoV-2 RNA (RT-PCR) NEGATIVE (Negative) S. pyogenes GrpA LINDA Negative (Negative) Independent Interpretation I performed an independent interpretation of an: Plain X-Ray (pneumonia) Radiology Impression Discussion of test interpretation with radiology: I have reviewed the radiologist's reading. External Record Review External record reviewed: Office record Discharge Plan Discharge Clinical Impression: Pneumonia Qualifiers: Pneumonia type: due to unspecified organism Laterality: left Lung location: upper lobe of lung Qualified Code(s): J18.9 - Pneumonia, unspecified organism Patient Disposition: Home, Self-Care Instructions: Pneumonia (ED) Additional Instructions: take a probiotic while on antibiotics you still have a tick panel pending if positive we will call you stay hydrated and out of head return for worsening symptoms inability to breathe, not able to take medications or any other concerns take meds with foods FINDINGS: Lungs are well expanded. There is airspace opacity in the anterior left upper lobe. No pleural effusion. Cardiomediastinal silhouette has normal size and contour. The visualized bones and upper abdomen are unremarkable. XR/XR chest 2V IMPRESSION: Pneumonia of left upper lobe. No pleural effusion. On doxycycline, do not take pills immediately before going to bed and swallow pills with plenty of water. Avoid direct sunlight, iron, antacids, and Pepto Bismol. Call your provider if you develop new ringing in your ears, new problems hearing, dizziness, difficulty swallowing, rash, abdominal discomfort, nausea, or diarrhea.? On a cephalosporin?antibiotic, softer bowel movements are to be expected. Call your provider if you move your bowels more than 4 times a day, your bowel movements are almost all liquid, or you get a rash.?? Prescriptions: New doxycycline hyclate 100 mg capsule 100 mg PO BID 7 Days Qty: 14 0RF cefuroxime axetil 500 mg tablet 500 mg PO BID 7 Days Qty: 14 0RF No Action omeprazole 20 mg capsule,delayed release(DR/EC) 20 mg PO DAILY Qty: 90 1RF Stand Alone Forms: Work/School Release Print Language: Slovenian
[2024-03-14 07:19] VITALS: BP 148/100; PULSE 83; RESP 18; TEMP 37.1; O2SAT 98
[2024-03-14] MEDS: 0.9 % Sodium Chloride 1,000 ML 999 ML IV (07:36)
[2024-03-14 07:43] LABS: MANUAL DIFF FLAG NO
--- NOTE | 2024-03-14 07:44 | PC.NURSE ---
a&ox4. vss and up to date. nsr on the cardiac exercise physiologist. pt presents to the ED w/ ongoing ARAUJO/cough w/ green sputum production x 5 days. pt verbalizes ARAUJO increases while cough is induced. pt states pain radiates to the back of his neck.pt denies change in vision/feeling lightheaded/dizzy. 20gIV placed in the left AC - labs obtained/sent to lab. tech obtaining 2nd set of cultures. IVF administered per provider order. pt waiting to go to xray at this time. no sob/wob noted. respirations even/unlabored. plan of care ongoing. call romero placed within reach.
[2024-03-14 07:48] LABS: Basophils Percent Auto 0.3 % (0-2); Eosinophils Percent Auto 0.1 % (0-4); Hematocrit 39.9 % (42.0-52.0); Hemoglobin 14.2 g/dl (14.0-18.0); Imm Gran Abs Auto 0.02 X10*3/uL (0.00-0.03); Imm Gran Pct Auto 0.3 % (0.0-0.4); Lymphocytes Absolute Auto 1.5 X10*3/uL (1.2-4.9); Lymphocytes Percent Auto 20.4 % (20-40); Mean Corpuscular HGB Conc 35.6 g/dl (31.0-36.0); Mean Corpuscular Hemoglobin 31.8 pg (27.0-33.0); Mean Corpuscular Volume 89.5 fL (80.0-98.0); Mean Platelet Volume 8.3 fL (9.4-12.4); Monocytes Absolute Auto 1.1 X10*3/uL (0.1-1.2); Monocytes Percent Auto 14.6 % (2-11); Neutrophils Absolute Auto 4.8 x10*3/uL (2.0-8.3); Neutrophils Percent Auto 64.3 % (45-73); Platelet Count 195 X10*3/uL (160-400); Red Blood Count 4.46 X10*6/uL (4.60-5.80); Red Cell Distribution Width 11.5 % (11.0-16.0); White Blood Count 7.5 X10*3/uL (4.8-10.8)
[2024-03-14 07:54] LABS: Lactic Acid 0.9 mmol/L (0.5-2.0)
[2024-03-14 07:54] LABS: Influenza A PCR NEGATIVE (Negative); Influenza B PCR NEGATIVE (Negative); Resp Syncy Virus RNA Qual PCR NEGATIVE (Negative); SARS COV2 PCR INHOUSE NEGATIVE (Negative)
[2024-03-14 07:57] LABS: IDNOW Serial# 58CA691E; Strep A Nucleic Acid Negative (Negative)
[2024-03-14 07:59] LABS: Alanine Aminotransferase 24 U/L (0-40); Albumin Level 4.3 g/dL (3.5-5.0); Alkaline Phosphatase 62 U/L (39-117); Anion Gap 11 (12-20); Aspartate Amino Transferase 20 U/L (5-37); Bilirubin Direct 0.2 mg/dL (0.0-0.5); Bilirubin Total 0.5 mg/dL (0.0-1.0); Blood Urea Nitrogen 13 mg/dL (9-16); Calcium 9.8 mg/dL (8.4-10.2); Carbon Dioxide 27 mmol/L (22-29); Chloride 101 mmol/L (96-108); Creatinine Clr Calc Pharmacy 87.3; Estimated Glomerular Filt Rate > 60; Glucose Random 105 mg/dL (60-115); Monotest Negative (Negative); Potassium 3.9 mmol/L (3.3-5.1); Sodium 135 mmol/L (135-145); Total Protein 7.5 g/dL (6.5-8.0)
[2024-03-14] MEDS: cefTRIAXone sodium 1 GM in 0.9 % Sodium Chloride 50 ML IV (08:38)
--- NOTE | 2024-03-14 08:40 | PC.NURSE ---
pt aware of xray results. abx administered per provider order.
[2024-03-14 08:48] VITALS: BP 123/75; PULSE 64; RESP 17; TEMP 36.9; O2SAT 98
[2024-03-14 09:00] VITALS: BP 123/75; PULSE 64; RESP 17; TEMP 36.9; O2SAT 98
[2024-03-15 13:43] LABS: Lyme Abs Screen <0.90 index
[2024-03-16 05:43] LABS: A. Phagocytphilium DNA,RT-PCR NOT DETECTED (NOT DETECTED); Babesia Microti DNA, RT-PCR NOT DETECTED (NOT DETECTED); Borrelia Miyamotoi,DNA RT-PCR NOT DETECTED (NOT DETECTED); E.Chaffeensis DNA RT-PCR NOT DETECTED (NOT DETECTED); Lyme(Borrelia ssp)DNA RT-PCR NOT DETECTED (NOT DETECTED)
== END 2024-03-14 09:01 | disposition home or self-care (01) ==
PROVIDERS: Emergency Provider Emergency Medicine
DX: J18.9 Pneumonia, unspecified organism (principal); R50.9 Fever, unspecified; R51.9 Headache, unspecified; R09.89 Other specified symptoms and signs involving the circulatory and respiratory systems; R05.9 Cough, unspecified; Z03.818 Encounter for observation for suspected exposure to other biological agents ruled out; Z79.899 Other long term (current) drug therapy
CPT/HCPCS: 0241U; 36415; 71046; 80048; 80076; 83605; 85025; 86308; 86617; 86618; 87040; 87468; 87469; 87478; 87484; 87651; 87798; 96361; 96374; 99284; J0696

== ENCOUNTER 2024-12-31 15:11 | Emergency (ER) | payer BC, SELFPAY ==
--- NOTE | ~2024-12-31 | XR_ITS ---
EXAMINATION: XR CHEST CLINICAL INFORMATION: Chest pain COMPARISON: 03/14/2024 TECHNIQUE: PA view of the chest was obtained. FINDINGS: The cardiac, hilar, and mediastinal contours are normal. The lungs are clear bilaterally. No pneumothorax or effusion. No focal osseous or soft tissue abnormality. XR/XR chest 1V IMPRESSION: Normal chest. Electronically signed by: Dank Steven MD 12/31/2024 04:35 PM EDT
--- NOTE | 2024-12-31 15:13 | ECG_ITS ---
Test Reason : CP Blood Pressure : */* mmHG Vent. Rate : 74 BPM Atrial Rate : 74 BPM P-R Int : 132 ms QRS Dur : 94 ms QT Int : 378 ms P-R-T Axes : 68 61 44 degrees QTcB Int : 419 ms Normal sinus rhythm with sinus arrhythmia Possible Left atrial enlargement Borderline ECG No previous ECGs available Referred By: Generic ED Physician Electronically Signed By: Meek Noe
[2024-12-31 15:23] VITALS: BP 154/102; PULSE 69; RESP 16; TEMP 36.7; O2SAT 97; BMI 27.1
--- NOTE | 2024-12-31 15:27 | ED_ITS ---
HPI - Chest Pain General Chief Complaint: Chest Pain Stated Complaint: chest pain,sob Time Seen by Provider: 12/31/24 17:54 Source: patient Mode of arrival: ambulatory Limitations: no limitations History of Present Illness ED Provider: HPI narrative: Patient's history of cocaine use use cocaine 2 days ago noticed sharp pain at that time with palpitation anxiety very anxious on arrival patient has been here before for similar complaint Related Data Previous Rx's ?Medication ?Instructions ?Recorded omeprazole 20 mg capsule,delayed 20 mg PO DAILY #90 caps 01/11/23 release cefuroxime axetil 500 mg tablet 500 mg PO BID 7 days #14 tabs 03/14/24 doxycycline hyclate 100 mg capsule 100 mg PO BID 7 days #14 caps 03/14/24 hydroxyzine HCl 25 mg tablet 25 mg PO TID PRN anxiety/sleep #20 12/31/24 tabs lorazepam 1 mg tablet (Ativan) 1 mg PO TID PRN anxiety #10 tabs 01/01/25 propranolol 10 mg tablet 10 mg PO TID PRN Heart 01/01/25 palpitations #20 tabs Allergies Allergy/AdvReac Type Severity Reaction Status Date / Time No Known Allergies Allergy Verified 01/01/25 16:58 Review of Systems 2 Review of Systems: Yes all other systems are reviewed and are negative [facility] Past Medical History Medical History HTN (hypertension) GERD (gastroesophageal reflux disease) Headache Family History Family History Father No problems noted. Mother No problems noted. Maternal Grandmother Diabetes Social History Social History Housing: House Patient Tobacco Use Status: Former Tobacco user e-Cigarette/Vaping Use: Former Use Substance Use Type: Crack/Cocaine and Marijuana service: No Current occupational status: employed Cognitive needs: No Hearing needs: No Vision needs: No Physical Exam 2 Vital Signs: Vital Signs: Last Vital Signs Temp 98.9 F 12/31/24 18:54 Pulse 73 12/31/24 18:54 Resp 13 12/31/24 18:54 BP 160/93 H 12/31/24 18:54 Pulse Ox 100 12/31/24 18:54 O2 Del Method Room Air 12/31/24 18:54 BMI result Body Mass Index 27.1 Appearance: Alert. Oriented X3. No acute distress. Anxious Eyes: PERRLA, No Nystagmus ENT: Pharynx normal. Oral Mucosa moist Neck: Normal inspection. Neck supple. CVS: Normal heart rate and rhythm. Pulses normal. Respiratory: No respiratory distress. Equal air entry bilateral, no wheezing/rales/rhonchi Abdomen: Soft and nontender. Bowel sounds are present, no mass palpable, no CVA tenderness Skin: Skin warm and dry. Normal skin color. Normal skin turgor. Extremities: No lower extremity edema. No calf tenderness Neuro: Oriented X 3. No motor deficit. No sensory deficit.No cerebellar signs , cranial nerves II-XII intact Course Course Course Narrative: RME: 34-year-old male presents to ED for having chest pain since Tuesday night after drinking alcohol and using cocaine. Patient states using cocaine before in the past. Patient denies any swelling of legs, calf pain or shortness of breath. EKG labs chest x-ray ordered. 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 12/31/24 15:35 12/31/24 15:35 Labs: Lab Results 12/31/24 Range/Units 15:35 WBC 7.9 (4.8-10.8) X10*3/uL RBC 4.78 (4.60-5.80) X10*6/uL Hgb 15.1 (14.0-18.0) g/dl Hct 43.9 (42.0-52.0) % MCV 91.8 (80.0-98.0) fL MCH 31.6 (27.0-33.0) pg MCHC 34.4 (31.0-36.0) g/dl RDW 11.7 (11.0-16.0) % Plt Count 272 D (160-400) X10*3/uL MPV 8.2 L (9.4-12.4) fL Immature Gran % (Auto) 0.3 (0.0-0.4) % Neut % (Auto) 55.1 (45-73) % Lymph % (Auto) 36.4 (20-40) % Long % (Auto) 6.2 (2-11) % Eos % (Auto) 1.6 (0-4) % Baso % (Auto) 0.4 (0-2) % Lymph # (Auto) 2.9 (1.2-4.9) X10*3/uL Long # (Auto) 0.5 (0.1-1.2) X10*3/uL Eos # (Auto) 0.1 (0.0-0.4) X10*3/uL Baso # (Auto) 0.0 (0.0-0.2) X10*3/uL Abs Immat Gran (auto) 0.02 (0.00-0.03) X10*3/uL Absolute Neuts (auto) 4.4 (2.0-8.3) x10*3/uL Absolute Nucleated RBC 0.000 (0.0-0.012) X10*3/uL Nucleated RBC % (auto) 0.0 (0.0-0.2) /100WBC PT 10.2 L (10.9-12.4) SEC INR 0.9 (0.9-1.1) APTT 31.3 (26.0-36.8) SEC Sodium 139 (135-145) mmol/L Potassium 4.0 (3.3-5.1) mmol/L Chloride 105 (96-108) mmol/L Carbon Dioxide 25 (22-29) mmol/L Anion Gap 13 (12-20) BUN 17 H (9-16) mg/dL Creatinine 0.98 (0.5-1.4) mg/dL Estim Creat Clear Calc 116.5 Estimated GFR > 60 Random Glucose 96 (60-115) mg/dL Calcium 9.4 (8.4-10.2) mg/dL Total Bilirubin 0.5 (0.0-1.0) mg/dL AST 30 (5-37) U/L ALT 36 (0-40) U/L Alkaline Phosphatase 75 (39-117) U/L Troponin I High Sens < 2.7 (<3.5-35.0) ng/L Total Protein 7.4 (6.5-8.0) g/dL Albumin 4.6 (3.5-5.0) g/dL Urine Opiates Screen Not Detected (Not Detect) Ur Buprenorphine Scrn Not Detected (Not Detect) ng/mL Ur Oxycodone Screen Not Detected (Not Detect) ng/mL Urine Methadone Screen Not Detected (Not Detect) ng/mL Urine Fentanyl Screen Not Detected (Not Detect) Ur Barbiturates Screen Not Detected (Not Detect) Ur Phencyclidine Scrn Not Detected (Not Detect) Ur Amphetamines Screen Not Detected (Not Detect) U Benzodiazepines Scrn Not Detected (Not Detect) Urine Cocaine Screen POSITIVE H (Not Detect) U Marijuana (THC) Screen Not Detected (Not Detect) Independent Interpretation I performed an independent interpretation of an: EKG Interpretation: Normal sinus rhythm heart rate 74 beats per minute normal interval normal axis no acute ST-T changes Discharge Plan Discharge Clinical Impression: Heart palpitations, Cocaine abuse Patient Disposition: Home, Self-Care Instructions: Heart Palpitations (ED), Cocaine Abuse (ED) Additional Instructions: Stop using cocaine and caffeine Relax at home Decrease salt intake Check your blood pressure at home should be less than 140/90 take Atarax for anxiety and sleep as prescribed Prescriptions: New hydroxyzine HCl 25 mg tablet 25 mg PO TID PRN (Reason: anxiety/sleep) Qty: 20 0RF No Action omeprazole 20 mg capsule,delayed release(DR/EC) 20 mg PO DAILY Qty: 90 1RF doxycycline hyclate 100 mg capsule 100 mg PO BID 7 Days Qty: 14 0RF cefuroxime axetil 500 mg tablet 500 mg PO BID 7 Days Qty: 14 0RF lorazepam [Ativan] 1 mg tablet 1 mg PO TID PRN (Reason: anxiety) Qty: 10 0RF Rx Instructions: Patient may request partial fill propranolol 10 mg tablet 10 mg PO TID PRN (Reason: Heart palpitations) Qty: 20 0RF Interventions: ED Discharge Assessment Last Done: 12/31/24 18:54 Discharge Date/Time: 12/31/24 18:55 Print Language: Norwegian
[2024-12-31 15:38] LABS: MANUAL DIFF FLAG NO
[2024-12-31 15:45] LABS: Basophils Percent Auto 0.4 % (0-2); Eosinophils Absolute Auto 0.1 X10*3/uL (0.0-0.4); Eosinophils Percent Auto 1.6 % (0-4); Hematocrit 43.9 % (42.0-52.0); Hemoglobin 15.1 g/dl (14.0-18.0); Imm Gran Abs Auto 0.02 X10*3/uL (0.00-0.03); Imm Gran Pct Auto 0.3 % (0.0-0.4); Lymphocytes Absolute Auto 2.9 X10*3/uL (1.2-4.9); Lymphocytes Percent Auto 36.4 % (20-40); Mean Corpuscular HGB Conc 34.4 g/dl (31.0-36.0); Mean Corpuscular Hemoglobin 31.6 pg (27.0-33.0); Mean Corpuscular Volume 91.8 fL (80.0-98.0); Mean Platelet Volume 8.2 fL (9.4-12.4); Monocytes Absolute Auto 0.5 X10*3/uL (0.1-1.2); Monocytes Percent Auto 6.2 % (2-11); Neutrophils Absolute Auto 4.4 x10*3/uL (2.0-8.3); Neutrophils Percent Auto 55.1 % (45-73); Platelet Count 272 X10*3/uL (160-400); Red Blood Count 4.78 X10*6/uL (4.60-5.80); Red Cell Distribution Width 11.7 % (11.0-16.0); White Blood Count 7.9 X10*3/uL (4.8-10.8)
[2024-12-31 15:47] LABS: INTERNATIONAL NORM RATIO 0.9 (0.9-1.1); Prothrombin Time 10.2 SEC (10.9-12.4)
[2024-12-31 15:49] LABS: Partial Thromboplastin Time 31.3 SEC (26.0-36.8)
[2024-12-31 16:02] LABS: Amphetamine Screen Urine Not Detected (Not Detect); Barbiturates, Urine Not Detected (Not Detect); Benzodiazepines Screen Urine Not Detected (Not Detect); Buprenorphine Scr Not Detected (Not Detect); Cannabinoid Screen Urine Not Detected (Not Detect); Cocaine Screen Urine POSITIVE (Not Detect); Fentanyl, urine Not Detected (Not Detect); Methadone Screen, Urine Not Detected (Not Detect); Opiate Screen Urine Not Detected (Not Detect); Oxycodone Screen Urine Not Detected (Not Detect); Phencyclidine Screen Urine Not Detected (Not Detect)
[2024-12-31 16:30] LABS: Alanine Aminotransferase 36 U/L (0-40); Albumin Level 4.6 g/dL (3.5-5.0); Anion Gap 13 (12-20); Aspartate Amino Transferase 30 U/L (5-37); Bilirubin Total 0.5 mg/dL (0.0-1.0); Blood Urea Nitrogen 17 mg/dL (9-16); Calcium 9.4 mg/dL (8.4-10.2); Carbon Dioxide 25 mmol/L (22-29); Chloride 105 mmol/L (96-108); Creatinine Clr Calc Pharmacy 116.5; Estimated Glomerular Filt Rate > 60; Glucose Random 96 mg/dL (60-115); Sodium 139 mmol/L (135-145); Total Protein 7.4 g/dL (6.5-8.0); Troponin-I High Sensitivity < 2.7 ng/L (<3.5-35.0)
[2024-12-31 16:52] LABS: Alkaline Phosphatase 75 U/L (39-117)
[2024-12-31 18:20] VITALS: BP 160/93; PULSE 73; RESP 13; TEMP 37.3; O2SAT 100
[2024-12-31] MEDS: hydrOXYzine HCL 25 MG TABLET PO (18:50)
[2024-12-31 18:54] VITALS: BP 160/93; PULSE 73; RESP 13; TEMP 37.2; O2SAT 100
== END 2024-12-31 18:55 | disposition home or self-care (01) ==
PROVIDERS: Physician Assistant; Emergency Provider Internal Medicine; PCP Nurse Practitioner Family
DX: R07.89 Other chest pain (principal); R06.02 Shortness of breath; R00.2 Palpitations; F41.9 Anxiety disorder, unspecified; F14.10 Cocaine abuse, uncomplicated; Z87.891 Personal history of nicotine dependence; Z51.81 Encounter for therapeutic drug level monitoring; Z79.899 Other long term (current) drug therapy
CPT/HCPCS: 36415; 71045; 80053; 80307; 84484; 85025; 85610; 85730; 93005; 99283; 99285

== ENCOUNTER → 2024-12-31 15:13 | Outpatient (BNV) | payer BC, SELFPAY | PROVIDERS: Emergency Provider Internal Medicine; PCP Nurse Practitioner Family; Visit Provider Internal Medicine Cardiovascular Disease | DX: R07.9 Chest pain, unspecified (principal) | CPT/HCPCS: 93010 ==

== ENCOUNTER → 2024-12-31 15:28 | Outpatient (BNV) | payer BC, SELFPAY | PROVIDERS: PCP Nurse Practitioner Family; Visit Provider Radiology Diagnostic Radiology | DX: R07.9 Chest pain, unspecified (principal) | CPT/HCPCS: 71045 ==

== ENCOUNTER 2025-01-01 16:51 | Emergency (ER) | payer BC, SELFPAY ==
[2025-01-01 16:55] VITALS: BP 149/99; PULSE 86; RESP 19; TEMP 36.6; O2SAT 99; BMI 27.1
--- NOTE | 2025-01-01 17:03 | ED.GENADULT ---
HPI - General Adult General Chief complaint: General Medical Stated complaint: SOB Time Seen by Provider: 01/01/25 18:09 Source: patient Mode of arrival: ambulatory Limitations: no limitations History of Present Illness ED Provider: Dr. Blaise Soto HPI narrative: 34-year-old man with no significant past medical history who presents emergency department for evaluation of chest tightness, lightheadedness, dizziness, numbness in his fingers and toes, anxiety and panic attacks with symptoms starting on 12/28/2024 after the patient used intranasal cocaine. The patient states that since using the cocaine he was had episodes of chest tightness, lightheadedness, dizziness, near-syncope, tingling in his in his toes and fingers, shortness of breath and feelings of panic and anxiety. Patient was seen in the emergency department yesterday and started on hydroxyzine. He states that this medication is not helping he was continuing to have symptoms. The patient states that he was not used any other cocaine and he has been avoiding other stimulants. Patient was using nicotine packets but he had stopped using them and he was concerned that he might be withdrawing from nicotine any use a nicotine packet with no improvement. If he was a bowel movement the patient denied fever but he states he was occasional chills. He denied cough, nausea or vomiting. He states he did have several loose stools. Related Data Previous Rx's ?Medication ?Instructions ?Recorded omeprazole 20 mg capsule,delayed 20 mg PO DAILY #90 caps 01/11/23 release cefuroxime axetil 500 mg tablet 500 mg PO BID 7 days #14 tabs 03/14/24 doxycycline hyclate 100 mg capsule 100 mg PO BID 7 days #14 caps 03/14/24 hydroxyzine HCl 25 mg tablet 25 mg PO TID PRN anxiety/sleep #20 12/31/24 tabs lorazepam 1 mg tablet (Ativan) 1 mg PO TID PRN anxiety #10 tabs 01/01/25 propranolol 10 mg tablet 10 mg PO TID PRN Heart 01/01/25 palpitations #20 tabs Allergies Allergy/AdvReac Type Severity Reaction Status Date / Time No Known Allergies Allergy Verified 01/01/25 16:58 Review of Systems Review of Systems: Yes all other systems are reviewed and are negative [facility] Past Medical History [facility] Narrative: Social history: Patient uses Zyn nicotine patches. Patient drinks 2-3 beers 3 to 4 times a week. Patient uses a marijuana vape pen 5 to 6 times a week multiple times a day. Medical History HTN (hypertension) GERD (gastroesophageal reflux disease) Headache Family History Family History Father No problems noted. Mother No problems noted. Maternal Grandmother Diabetes Social History Social History Housing: House Patient Tobacco Use Status: Former Tobacco user Smoked in Last 30 Days: No e-Cigarette/Vaping Use: Former Use Use of substances other than those prescribed or required for medical reasons: Yes Substance Use Type: Crack/Cocaine and Marijuana Last Used Substance: Days (ago) Advance Directives: No Advance Directives Information Provided: Yes Do you have a plan to hurt others: No Plan service: No Current occupational status: employed Cognitive needs: No Hearing needs: No Vision needs: No Physical Exam ED Vital Signs: Vital Signs - 24 hr 01/01/25 16:55 01/01/25 17:40 01/01/25 19:08 Temperature 98 F 98.7 F 98.7 F Pulse Rate 86 88 74 Respiratory Rate 19 18 16 Blood Pressure 149/99 H 143/104 H 140/99 H Pulse Oximetry 99 96 98 Oxygen Delivery Method Room Air Room Air Room Air BMI result Body Mass Index 27.1 Vital signs revealed an elevated blood pressure of 144/99 otherwise unremarkable Exam: General: Awake, alert in no distress Head: Normocephalic, atraumatic EENT: PERRL, Lids normal, sclera normal, conjunctiva normal, nose normal , ears normal, throat without erythema or exudates Neck: Supple, no adenopathy Lung: breath sounds symmetric, no wheezing, rales or rhonchi Chest: symmetric movement, nontender Heart: regular rate and rhythm, normal S1, S2 no murmurs or rubs Abdomen: soft, non-tender, nondistended, normal bowel sounds Back: no vertebral tenderness, no CVAT Extremities: no deformities, moves all extremities symmetrically Neuro: Awake, alert, oriented, normal speech, cranial nerves intact, moves all extremities symmetrically Psych: Pleasant, cooperative Course Course Course Narrative: RME, this is a rapid medical exam performed by Emory Wilhelm please refer to primary provider for complete H&P- 34-year-old male presents for evaluation of shortness of breath and intermittent chest pain and left arm tingling. He was seen here yesterday for similar. He admits to using cocaine on Tuesday while he was drinking. I reviewed his workup, he had labs, EKG, chest x-ray. Plan for repeat labs and EKG, we will defer additional imaging at this time. Medical Decision Making Medical Decision Making [facility] Narrative: 34-year-old man with no significant past medical history who presents emergency department for evaluation of chest tightness, lightheadedness, dizziness, numbness in his fingers and toes, anxiety and panic attacks with symptoms starting on 12/28/2024 after the patient used intranasal cocaine. Patient was had multiple episodes. He was seen in the emergency department yesterday with a negative workup and started on hydroxyzine which she states he was not helped. Patient's vital signs revealed an elevated blood pressure otherwise unremarkable. Physical examination was normal. Differential diagnosis: ?Includes but is not limited to myocardial infarction, myocardial ischemia, stroke, panic attack, hyperventilation syndrome, anemia, electrolyte abnormalities Course: 19:07 My independent interpretation patient's laboratory evaluation as follows: CBC was normal. CMP was normal. Troponin was below detectable limits. Patient was 12 EKG was unremarkable. Chest x-ray done yesterday revealed no acute abnormalities. Patient was presentation is consistent with hyperventilation syndrome and I did discuss this with the patient. Patient was advised to stop taking the hydroxyzine. The patient was prescribed Ativan 1 mg pills t.i.d. and at night PRN anxiety/stress. Patient was also started on propranolol 10 mg pills, 1 pill 3 times a day as needed for palpitations, anxiety and stress. I told the patient to avoid stimulants for the next 2 weeks. Patient did have an elevated blood pressure and I did discuss this with him. The patient was that check his blood pressure Tuesday, Tuesday and Tuesday mornings for 2 weeks and then discuss these readings with his PCP. He was given printed and verbal instructions and discharged home. Admission/Observation Consideration of admission/observation: Escalation of care including admission/observation considered (Yes) Lab Data [facility] Lab Attestation statement: I reviewed the patient's lab results. 01/01/25 17:16 01/01/25 17:16 Labs: Lab Results 01/01/25 Range/Units 17:16 WBC 8.7 (4.8-10.8) X10*3/uL RBC 5.10 (4.60-5.80) X10*6/uL Hgb 16.3 (14.0-18.0) g/dl Hct 44.7 (42.0-52.0) % MCV 87.6 (80.0-98.0) fL MCH 32.0 (27.0-33.0) pg MCHC 36.5 H (31.0-36.0) g/dl RDW 11.5 (11.0-16.0) % Plt Count 279 (160-400) X10*3/uL MPV 8.4 L (9.4-12.4) fL Immature Gran % (Auto) 0.2 (0.0-0.4) % Neut % (Auto) 64.9 (45-73) % Lymph % (Auto) 29.0 (20-40) % [place] % (Auto) 5.2 (2-11) % Eos % (Auto) 0.5 (0-4) % Baso % (Auto) 0.2 (0-2) % Lymph # (Auto) 2.5 (1.2-4.9) X10*3/uL [place] # (Auto) 0.5 (0.1-1.2) X10*3/uL Eos # (Auto) 0.0 (0.0-0.4) X10*3/uL Baso # (Auto) 0.0 (0.0-0.2) X10*3/uL Abs Immat Gran (auto) 0.02 (0.00-0.03) X10*3/uL Absolute Neuts (auto) 5.7 (2.0-8.3) x10*3/uL Absolute Nucleated RBC 0.000 (0.0-0.012) X10*3/uL Nucleated RBC % (auto) 0.0 (0.0-0.2) /100WBC Sodium 139 (135-145) mmol/L Potassium 3.6 (3.3-5.1) mmol/L Chloride 108 (96-108) mmol/L Carbon Dioxide 24 (22-29) mmol/L Anion Gap 11 L (12-20) BUN 10 (9-16) mg/dL Creatinine 1.00 (0.5-1.4) mg/dL Estim Creat Clear Calc 114.2 Estimated GFR > 60 Random Glucose 108 (60-115) mg/dL Calcium 9.8 (8.4-10.2) mg/dL Total Bilirubin 0.6 (0.0-1.0) mg/dL AST 25 (5-37) U/L ALT 37 (0-40) U/L Alkaline Phosphatase 84 (39-117) U/L Troponin I High Sens < 2.7 (<3.5-35.0) ng/L Total Protein 7.3 (6.5-8.0) g/dL Albumin 4.7 (3.5-5.0) g/dL Lipase 19 (8-78) U/L Independent Interpretation I performed an independent interpretation of an: EKG Interpretation: My independent interpretation patient's 12 EKG done on 01/01/2025 at 17:09 hours is as follows: Normal sinus rhythm with a rate of 87, normal [place] interval, QRS duration and QTC interval, no ST segment elevation, no ST segment depression, no significant T-wave abnormalities. Compared to EKG done 12/31/2024 at 15:14 revealed no acute changes. Prescription Management I considered prescription management with: Other (Anti anxiolytic: Ativan, beta lindsay: Propranolol) Discharge Plan Discharge Clinical Impression: Acute hyperventilation syndrome, Palpitations Patient Disposition: Home, Self-Care Instructions: Hyperventilation (ED) Additional Instructions: You had a complete blood count and comprehensive metabolic panel done today. These tests were all normal. Your high sensitive troponin I, (a marker of heart damage) was below detectable limits suggesting that your symptoms are not caused by a heart attack or heart damage. Based on your description of your symptoms, you are having hyperventilation syndrome which is caused by a stressor to your body. This causes your body to release adrenaline, causes you to breathe faster, , gives you chest tightness, heart palpitations, lightheadedness and dizziness. Sometimes you can get numbness and tingling in your hands and feet and then cramping of your hands and feet as well. The treatment for hyperventilation syndrome is antianxiety medications (benzodiazepine) and medications to stop your heart from beating rapidly (beta blockers). Take Ativan (lorazepam) 1 mg pills, 1 pill every 6 hours as needed for anxiety or you can try 1 pill at night. This is a benzodiazepine. ?This medication will make you sleepy, do not drive or work while taking this medication. ?This medication can be addicting, if your concerned about addiction you can ask the pharmacist for less medications or do not get the prescription filled. Take propranolol 10 mg pills, 1 pill 3 times a day as needed for palpitations. This medication is a beta lindsay. You should avoid caffeine, nicotine and stimulants. Follow-up with your doctor in 2 days. Please return to the emergency department if your symptoms get worse or if you develop any symptoms that are concerning to you. Stop taking the hydroxyzine that was prescribed yesterday. Please see the return to work note Prescriptions: New lorazepam [Ativan] 1 mg tablet 1 mg PO TID PRN (Reason: anxiety) Qty: 10 0RF Rx Instructions: Patient may request partial fill propranolol 10 mg tablet 10 mg PO TID PRN (Reason: Heart palpitations) Qty: 20 0RF No Action omeprazole 20 mg capsule,delayed release(DR/EC) 20 mg PO DAILY Qty: 90 1RF doxycycline hyclate 100 mg capsule 100 mg PO BID 7 Days Qty: 14 0RF cefuroxime axetil 500 mg tablet 500 mg PO BID 7 Days Qty: 14 0RF hydroxyzine HCl 25 mg tablet 25 mg PO TID PRN (Reason: anxiety/sleep) Qty: 20 0RF Stand Alone Forms: Work/School Release Interventions: ED Discharge Assessment Last Done: 01/01/25 19:08 Discharge Date/Time: 01/01/25 19:14 Print Language: Georgian
--- NOTE | 2025-01-01 17:06 | ECG_ITS ---
Test Reason : CP Blood Pressure : */* mmHG Vent. Rate : 87 BPM Atrial Rate : 87 BPM P-R Int : 122 ms QRS Dur : 90 ms QT Int : 356 ms P-R-T Axes : 80 67 47 degrees QTcB Int : 428 ms Normal sinus rhythm with sinus arrhythmia Possible Left atrial enlargement Borderline ECG When compared with ECG of 31-Dec-2024 15:14, No significant change was found Referred By: Messi Wilhelm Electronically Signed By: Meek Noe
[2025-01-01 17:19] LABS: MANUAL DIFF FLAG NO
[2025-01-01 17:26] LABS: Basophils Percent Auto 0.2 % (0-2); Eosinophils Percent Auto 0.5 % (0-4); Hematocrit 44.7 % (42.0-52.0); Hemoglobin 16.3 g/dl (14.0-18.0); Imm Gran Abs Auto 0.02 X10*3/uL (0.00-0.03); Imm Gran Pct Auto 0.2 % (0.0-0.4); Lymphocytes Absolute Auto 2.5 X10*3/uL (1.2-4.9); Mean Corpuscular HGB Conc 36.5 g/dl (31.0-36.0); Mean Corpuscular Volume 87.6 fL (80.0-98.0); Mean Platelet Volume 8.4 fL (9.4-12.4); Monocytes Absolute Auto 0.5 X10*3/uL (0.1-1.2); Monocytes Percent Auto 5.2 % (2-11); Neutrophils Absolute Auto 5.7 x10*3/uL (2.0-8.3); Neutrophils Percent Auto 64.9 % (45-73); Platelet Count 279 X10*3/uL (160-400); Red Cell Distribution Width 11.5 % (11.0-16.0); White Blood Count 8.7 X10*3/uL (4.8-10.8)
[2025-01-01 17:39] LABS: Alanine Aminotransferase 37 U/L (0-40); Albumin Level 4.7 g/dL (3.5-5.0); Alkaline Phosphatase 84 U/L (39-117); Anion Gap 11 (12-20); Aspartate Amino Transferase 25 U/L (5-37); Bilirubin Total 0.6 mg/dL (0.0-1.0); Blood Urea Nitrogen 10 mg/dL (9-16); Calcium 9.8 mg/dL (8.4-10.2); Carbon Dioxide 24 mmol/L (22-29); Chloride 108 mmol/L (96-108); Creatinine Clr Calc Pharmacy 114.2; Estimated Glomerular Filt Rate > 60; Glucose Random 108 mg/dL (60-115); Lipase 19 U/L (8-78); Potassium 3.6 mmol/L (3.3-5.1); Sodium 139 mmol/L (135-145); Total Protein 7.3 g/dL (6.5-8.0)
[2025-01-01 17:40] VITALS: BP 143/104; PULSE 88; RESP 18; TEMP 37.1; O2SAT 96
--- NOTE | 2025-01-01 17:42 | PC.NURSE ---
pt brought back from - changed into hospital attire, child monitor applied. NSR at 88bpm. Pt sts that over the weekend he had been drinking and did some cocaine. was seen [place] [facility] [place] for c/o palpations, CP-- workup negative and pt was dc'd w/ rx for Atarax. Pt did take a dose at 1500 [employer] without relief. Pt returns to ED today with same chief complaint of CP and feeling shaky . pt sts that he has not done cocaine, or drank since this weekend he sts he only uses cocaine recreationaly. Pt sts that he has been using zyn nicotine packets to help him quit smoking, he has not consumed any since arriving in dept, but is unsure if it is contributing to his feelings of anxiety/ shakiness.
[2025-01-01 17:47] LABS: Troponin-I High Sensitivity < 2.7 ng/L (<3.5-35.0)
[2025-01-01 19:08] VITALS: BP 140/99; PULSE 74; RESP 16; TEMP 37.1; O2SAT 98
== END 2025-01-01 19:14 | disposition home or self-care (01) ==
PROVIDERS: Physician Assistant; Emergency Provider Emergency Medicine Emergency Medical Services; PCP Nurse Practitioner Family
DX: F45.8 Other somatoform disorders (principal); R00.2 Palpitations; R42 Dizziness and giddiness; R06.02 Shortness of breath; I10 Essential (primary) hypertension; F41.9 Anxiety disorder, unspecified; Z87.891 Personal history of nicotine dependence
CPT/HCPCS: 36415; 80053; 83690; 84484; 85025; 93005; 99283; 99284

== ENCOUNTER → 2025-01-01 17:06 | Outpatient (BNV) | payer BC, SELFPAY | PROVIDERS: Emergency Provider Emergency Medicine Emergency Medical Services; PCP Nurse Practitioner Family; Visit Provider Internal Medicine Cardiovascular Disease | DX: R07.9 Chest pain, unspecified (principal) | CPT/HCPCS: 93010 ==

== ENCOUNTER 2025-01-07 12:49 | Outpatient (AMB) | payer BC, SELFPAY ==
--- NOTE | 2025-01-07 13:30 | MHC.OFFWIV ---
Intake Vital Signs 01/07/25 13:33 Weight 200 lb BP 130/90 H Blood Pressure Location Rt brachial Position Sitting Pulse 73 Pulse Source Pulse Oximeter Pulse Oximetry (%) 96 Oxygen Delivery Method Room Air Intake Visit Reasons: EP heart palpitations Intake Note: Patient here for heart palpitations that has been present for about 1 week, sob, lightheaded, tingly Patient Tobacco Use Status: Former Tobacco user Allergies No Known Allergies Allergy (Verified 01/01/25 16:58) Do you need a note to return to daycare/school/sports/work: Yes HPI HPI Comments History of Present Illness Details 34 y/o Male Patient who presents to the walk in clinic with c/o Heart Palpitations and chest pains. Pt was seen recently at the [facility] for similar problem and all testings and imaging WNL. Pt did admit Cocaine use 2 weeks ago and has not used again. Reports avoiding all stimulants (Caffeine, Marijuana or cigarettes) but continue to have Chest pain associated with Hear Palpations and Tachycardia. He has been using Ativan at night time with little effect. He has been using Proponolol PRN with no much relief. Pt asking for Cardiology referral. [facility] Medical History HTN (hypertension) GERD (gastroesophageal reflux disease) Headache Family History Father No problems noted. Mother No problems noted. Maternal Grandmother Diabetes Social History Housing: House Patient Tobacco Use Status: Former Tobacco user e-Cigarette/Vaping Use: Former Use Substance Use Type: Crack/Cocaine and Marijuana service: No Current occupational status: employed Cognitive needs: No Hearing needs: No Vision needs: No Review of Systems Const All systems reviewed & are unremarkable except as noted in HPI and below Physical Exam Vital Signs: Last Vital Signs Pulse 73 01/07/25 13:33 BP 130/90 H 01/07/25 13:33 Pulse Ox 96 01/07/25 13:33 Oxygen Delivery Method Room Air 01/07/25 13:33 Const General: cooperative and no acute distress Orientation/consciousness: patient oriented x3 Resp Effort & Inspection: normal respiratory effort and able to speak in complete sentences Auscultation: clear to auscultation bilaterally Cardio Rate: regular rate Heart sounds: S1 normal heart sound present and S2 normal heart sound present Neuro General: patient oriented x3, gait normal and moves all extremities Psych Speech and movement: Normal speech and movement present Affect: Anxious affect present Assessment & Plan Assessment & Plan (1) Heart palpitations: Code(s): R00.2 - Palpitations Plan: Pt has an appointment with PCP , will have him place Referral to Cardiology. Advised to take Propranolol TID and keep a close monitor on his HR. Medications: Refilled propranolol 10 mg PO TID PRN 20 tabs 0RF Heart palpitations R00.2 - Palpitations Coding Level of Care Code Est Pt Level 4 (22389) Diagnoses Heart palpitations R00.2 Time Spent (min) 20
[2025-01-07 13:33] VITALS: BP 130/90; PULSE 73; O2SAT 96
== END 2025-01-07 14:58 | disposition home or self-care (01) ==
PROVIDERS: PCP Nurse Practitioner Family; Visit Provider Nurse Practitioner Family
DX: R00.2 Palpitations (principal)

== ENCOUNTER → 2025-01-07 12:49 | Outpatient (BNVA) | payer BC, SELFPAY | PROVIDERS: PCP Nurse Practitioner Family; Visit Provider Nurse Practitioner Family ==

== ENCOUNTER 2025-01-10 15:16 | Outpatient (AMB) | payer BC, SELFPAY ==
[2025-01-10 15:24] VITALS: BP 112/86; PULSE 59; O2SAT 98; BMI 27.6
--- NOTE | 2025-01-10 15:24 | MHC.PC.OV ---
Vital Signs 01/10/25 15:24 Height 6 ft Weight 203 lb 6 oz BMI 27.6 BP 112/86 Blood Pressure Location Rt brachial Position Sitting Pulse 59 Pulse Source Pulse Oximeter Pulse Oximetry (%) 98 Oxygen Delivery Method Room Air Intake Visit Reasons: ER F/U-breathing issues, fast heart beat Allergies No Known Allergies Allergy (Verified 01/10/25 16:41) Medication List - Last Reconciled 01/10/25 [facility] buspirone 7.5 mg PO BID 30 days Tobacco use date assessed: 01/10/25 Dental Screening Dental Screen Date: 01/10/25 Did you have a dental visit in the last 12 months?: Yes Did you have a dental problem in the last 6 months where you did not have access to dental care?: No Was dental information given to patient?: Patient has dentist HPI ER F/U-breathing issues, fast heart beat HPI Details The patient presents for follow-up of anxiety and panic attacks experienced after intranasal cocaine use, HDF. History of Present Illness The patient is a 34-year-old male presenting for follow-up of anxiety and panic attacks post-hospital discharge. He experienced episodes of shortness of breath, chest tightness, dizziness, and numbness in extremities, which began four days before his emergency room visit. These symptoms were associated with recent intranasal cocaine use. Persistent symptoms have prompted abstinence from cocaine and cessation of nicotine packets, caffeine, marijuana. Hospital evaluations included negative troponin levels, normal CBC, CMP, unremarkable EKG, and clear chest X-ray findings. Interventions during this period included discontinuation of hydroxyzine, initiation of lorazepam and propranolol therapy, and coordination of further cardiac evaluations. 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 - History of intranasal cocaine use and nicotine packet usage, both of which have been ceased. - Reports abstaining from cocaine, nicotine, marijuana, and caffeine since symptom onset. Health Maintenance - Order for Holter monitoring, echocardiography, and stress test to evaluate cardiac health. - propranolol administration for anxiety and stress management (being stopped today, starting metoprolol) Review of Systems - Cardiovascular: Denies fever, chest pain. - Respiratory: Reports shortness of breath. - Neurological: Reports lightheadedness, dizziness, numbness in fingers and toes. - Psychiatric: Reports anxiety, describes panic attacks. Physical Exam General: Cooperative, healthy appearing, comfortable, no acute distress and well developed Orientation: Patient oriented x3 Limitations: No limitations Head: Normal to inspection Ears: Hearing grossly normal bilaterally Nose: Normal external nose present Face and sinus: Normal facial exam Eyes: Appearance normal, both eyes and all related structures Neck: Normal visual inspection and Yes full ROM Respiratory: Normal respiratory effort and able to speak in complete sentences. Clear to auscultation bilaterally Cardiovascular: Regular rate and rhythm. Normal S1 and S2 GI: Normal to inspection. Soft to palpation and nontender Skin: No rashes or lesions noted Neuro: Patient oriented x3 Extremities: Normal to inspection Results - Labs: Negative troponin levels, normal CBC, normal CMP. - Tests and Diagnostics: Unremarkable EKG, chest X-ray showed no acute abnormalities. Plan Today's visit focuses on managing anxiety and panic attacks secondary to prior intranasal cocaine use. Hydroxyzine has been discontinued, and lorazepam was initially administered in the emergency department, though replaced with buspirone due to adverse feelings. The propranolol regimen has been streamlined from 10 mg three times daily to metoprolol ER 12.5mg daily . Ordered cardiac assessments include Holter monitoring, an echocardiogram, and a stress test to evaluate the patient's heart health. Continued abstinence from cocaine and nicotine is emphasized to prevent further episodes. 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 The decision to discontinue hydroxyzine and switch from lorazepam to buspirone was based on the patient's reported discomfort with lorazepam and the need for a more effective anxiety management strategy. The patient was informed of the benefits of propranolol in managing stress and anxiety and its dose adjustment for compliance. Risks and benefits of the planned cardiac evaluations were reviewed. I advised on the importance of continued abstinence from cocaine, nicotine, and caffeine, discussing potential improvements in symptoms. We agreed on the current strategy and planned follow-up visits for assessment of treatment efficacy and adjustment if needed. Patient Instructions - stop propranolol, start metoprolol ER 12.5mg daily - Start buspirone twice a day for anxiety management. - Refrain from using cocaine, caffeine, marijuana, and nicotine as advised. - Complete the scheduled Holter monitor, echocardiogram, and stress test. - Follow up as scheduled for evaluation of your current treatment plan. - Contact us if experiencing increased anxiety, new symptoms, or if you have any concerns. [facility] Medical History HTN (hypertension) GERD (gastroesophageal reflux disease) Headache Family History Father No problems noted. Mother No problems noted. Maternal Grandmother Diabetes Social History Housing: House Patient Tobacco Use Status: Former Tobacco user e-Cigarette/Vaping Use: Former Use Substance Use Type: Crack/Cocaine and Marijuana service: No Current occupational status: employed Cognitive needs: No Hearing needs: No Vision needs: No Questionnaire PHQ-9 Over the last 2 weeks, how often have you been bothered by any of the following problems? 1. Little interest or pleasure in doing things: not at all 2. Feeling down, depressed, or hopeless: not at all 3. Trouble falling or staying asleep, or sleeping too much: nearly every day 4. Feeling tired or having little energy: several days 5. Poor appetite or overeating: several days 6. Feeling bad about yourself - or that you are a failure or have let yourself or your family down: not at all 7. Trouble concentrating on things, such as reading the newspaper or watching television: not at all 8. Moving or speaking so slowly that other people could have noticed. Or the opposite - being so fidgety or restless that you have been moving around a lot more than usual: not at all 9. Thoughts that you would be better off or of hurting yourself in some way: not at all Total score: 5 Depression Screening Interpretation: Negative Depression Screening Done: Yes 95180 - PHQ-9 Billing: Yes Source: Developed by Drs. Talon Monroy, Mnidy Burnham, Adolfo Allen and colleagues, with an educational huy from [employer]. Thrive Questionnaire Date Thrive assessed: 01/10/25 I am a: Patient What is your living situation today?: I have a steady place to live Within the past 12 months, did the food you bought not last and you didn't have the money to get more?: I choose not to answer this question Within the past 12 months, did you worry whether your food would run out before you got money to buy more?: I choose not to answer this question Do you have trouble paying for medicines?: I choose not to answer this question Do you have trouble getting transportation to medical appointments?: I choose not to answer this question Do you have trouble paying your heating and electricity bill?: I choose not to answer this question Do you have trouble taking care of your child, family member or friend?: I choose not to answer this question Do you have trouble with day-to-day activities such as bathing, preparing meals, shopping, managing finances, etc.?: I choose not to answer this question Are you currently unemployed and looking for a job?: I choose not to answer this question Are you interested in more education?: I choose not to answer this question Please select the resources that you would like help with: None Currently or been in a relationship where the following occur: I choose not to answer THRIVE Score: 0 AUDIT C Alcohol Use Questionnaire (AUDIT-C) 1. How often do you have a drink containing alcohol?: Monthly or less 2. How many drinks containing alcohol do you have on a typical day when you are drinking?: 1 or 2 3. How often do you have six or more drinks on one occasion?: Never Total Score: 1 Score Reviewed/Action Taken: Yes JAMIE-7 AMB Questionnaire JAMIE-7 Date JAMIE - 7 assessed: 01/10/25 Feeling nervous, anxious, or on edge: 2 = More than half the days Not being able to stop or control worryin = More than half the days Worrying too much about different things: 0 = Not at all Trouble relaxin = More than half the days Being so restless that it is hard to sit still: 0 = Not at all Becoming easily annoyed or irritable: 0 = Not at all Feeling afraid as if something awful might happen: 0 = Not at all Total JAMIE-7 score (0-4 normal; 5-9 mild; 10-14 moderate; 15-21 severe): 6 Source: Developed by Drs. Talon Monroy, Mindy Burnham, Adolfo Allen and colleagues, with an educational huy from [employer]. JAMIE-7 Assessment Billing JAMIE-7 Assessment Tool: JAMIE-7 Assessment 57759 Physical exam (Primary Care) Vital Signs: Last Vital Signs Pulse 59 01/10/25 15:24 BP 112/86 01/10/25 15:24 Pulse Ox 98 01/10/25 15:24 Oxygen Delivery Method Room Air 01/10/25 15:24 BMI result Body Mass Index 27.6 Tobacco/Smoking Status: Tobacco use Status Tobacco use date assessed 01/10/25 01/10/25 15:28 Patient Tobacco Use Status Former Tobacco user 01/10/25 15:28 e-Cigarette/Vaping Use Former Use 01/10/25 15:28 PHQ-9: PHQ-9 Score PHQ-9: Total score 5 01/10/25 15:28 Depression Screening Interpretation: Negative Thrive Assessment: Date of Thrive Assessment Date Thrive assessed 01/10/25 01/10/25 15:28 Currently or been in a relationship where the following occur: I choose not to answer Coding Level of Care Code Est Pt Level 4 (82830) Diagnoses Heart palpitations R00.2 Anxiety F41.9 Additional Codes JAMIE-7 Assessment Billing - JAMIE-7 Assessment Tool: JAMIE-7 Assessment 03497 ([id number]) PHQ-9 - 83936 - PHQ-9 Billing: Yes ([id number]) Assessment & Plan Assessment & Plan (1) Heart palpitations: Code(s): R00.2 - Palpitations Category: Medical (2) Anxiety: Code(s): F41.9 - Anxiety disorder, unspecified Category: Medical Plan . Orders: Orders CA stress test Today R00.2 - Palpitations Complete Blood Count Auto Diff Today R00.2 - Palpitations TSH reflex Free T4 Today R00.2 - Palpitations CA echo transthoracic complete Today R00.2 - Palpitations ECG 3 day holter monitor Today R00.2 - Palpitations Comprehensive [place]. Panel Fast Today R00.2 - Palpitations UA CC w/rflx Micro + Cult Today R00.2 - Palpitations Lipid Panel Today R00.2 - Palpitations Medications: New buspirone 7.5 mg PO BID 60 tabs 3RF 30 days metoprolol succinate ER 12.5 mg (1/2 x 25 mg) PO DAILY 15 tabs 4RF 30 days Discontinued lorazepam (Ativan) Patient may request partial fill Discontinued Reason: Doctor's Order 1 mg PO TID PRN 10 tabs 0RF anxiety
== END 2025-01-10 16:32 | disposition home or self-care (01) ==
LOC: HO.HMCC 15:17
PROVIDERS: PCP Nurse Practitioner Family; Visit Provider Nurse Practitioner Family
DX: R00.2 Palpitations (principal); F41.9 Anxiety disorder, unspecified

== ENCOUNTER → 2025-01-10 15:16 | Outpatient (BNVA) | payer BC, SELFPAY | PROVIDERS: PCP Nurse Practitioner Family; Visit Provider Nurse Practitioner Family | DX: R00.2 Palpitations (principal); F41.9 Anxiety disorder, unspecified | CPT/HCPCS: 96127 ==

== ENCOUNTER 2025-01-22 16:06 | Emergency (ER) | payer BC, SELFPAY ==
--- NOTE | ~2025-01-22 | CT_ITS ---
CLINICAL HISTORY: pain radicular sxs CT cervical spine without contrast Comparison: None Findings: Straightening of the cervical spine is likely positional. No significant degenerative change. No acute fractures or dislocations. No acute findings on limited view of the intracranial contents. No cervical fluid collections or masses. Lung apices are clear. IMPRESSION: No acute findings. This document has been electronically signed by: Jessie Woodruff MD on 01/23/2025 00:48:08
[2025-01-22 16:29] VITALS: BP 133/84; PULSE 77; RESP 20; TEMP 37.1; O2SAT 99; BMI 27.5
[2025-01-22 17:04] LABS: MANUAL DIFF FLAG NO
[2025-01-22 17:06] LABS: Basophils Percent Auto 0.2 % (0-2); Eosinophils Absolute Auto 0.1 X10*3/uL (0.0-0.4); Eosinophils Percent Auto 1.1 % (0-4); Hematocrit 40.3 % (42.0-52.0); Hemoglobin 14.4 g/dl (14.0-18.0); Imm Gran Abs Auto 0.02 X10*3/uL (0.00-0.03); Imm Gran Pct Auto 0.2 % (0.0-0.4); Lymphocytes Absolute Auto 1.8 X10*3/uL (1.2-4.9); Lymphocytes Percent Auto 19.9 % (20-40); Mean Corpuscular HGB Conc 35.7 g/dl (31.0-36.0); Mean Corpuscular Hemoglobin 32.4 pg (27.0-33.0); Mean Corpuscular Volume 90.6 fL (80.0-98.0); Mean Platelet Volume 8.2 fL (9.4-12.4); Monocytes Absolute Auto 0.8 X10*3/uL (0.1-1.2); Monocytes Percent Auto 8.3 % (2-11); Neutrophils Absolute Auto 6.3 x10*3/uL (2.0-8.3); Neutrophils Percent Auto 70.3 % (45-73); Platelet Count 206 X10*3/uL (160-400); Red Blood Count 4.45 X10*6/uL (4.60-5.80); Red Cell Distribution Width 11.7 % (11.0-16.0)
[2025-01-22 17:19] LABS: Alanine Aminotransferase 28 U/L (0-40); Albumin Level 4.5 g/dL (3.5-5.0); Alkaline Phosphatase 75 U/L (39-117); Anion Gap 12 (12-20); Aspartate Amino Transferase 26 U/L (5-37); Bilirubin Total 0.8 mg/dL (0.0-1.0); Blood Urea Nitrogen 13 mg/dL (9-16); Calcium 9.1 mg/dL (8.4-10.2); Carbon Dioxide 27 mmol/L (22-29); Chloride 102 mmol/L (96-108); Creatinine Clr Calc Pharmacy 120.2; Estimated Glomerular Filt Rate > 60; Glucose Random 93 mg/dL (60-115); Magnesium 2.1 mg/dL (1.6-2.6); Potassium 3.5 mmol/L (3.3-5.1); Sodium 137 mmol/L (135-145); Total Protein 7.1 g/dL (6.5-8.0)
[2025-01-22 20:11] VITALS: BP 112/63; PULSE 74; RESP 16; TEMP 36.8; O2SAT 97
--- NOTE | 2025-01-22 22:49 | ED_ITS ---
HPI - General Adult General Chief complaint: Extremity Problem Stated complaint: L arm tingling Time Seen by Provider: 01/22/25 21:58 Source: patient Limitations: no limitations History of Present Illness ED Provider: Shahana Soto PA-C HPI narrative: 34-year-old male with a history of anxiety, prior sciatica, presents with multiple complaints. Patient states over the past 2 weeks he has been having panic attacks. He has also been having pain and paresthesia of left upper chest wall into the axilla with radiation of pain down the left upper extremity. Patient states he was running on the treadmill, once he rested, his heart rate remained elevated, he took Ativan his symptoms resolved. During that time, he had concurrent focal pain in his AC, and paresthesia of the left lower extremity. 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 Denies current back pain, paresthesia, urinary retention or bowel incontinence. Denies known injury to the cervical spine. Related Data Previous Rx's ?Medication ?Instructions ?Recorded buspirone 7.5 mg tablet 7.5 mg PO BID 30 days #60 tabs 01/10/25 lorazepam 0.5 mg tablet (Ativan) 0.5 mg PO DAILY PRN anxiety 14 01/14/25 days #14 tabs metoprolol succinate 25 mg 12.5 mg (1/2 x 25 mg) PO BID 30 01/14/25 tablet,extended release 24 hr days #30 tabs Allergies Allergy/AdvReac Type Severity Reaction Status Date / Time No Known Allergies Allergy Verified 01/22/25 16:33 Review of Systems 2 Review of Systems: Yes all other systems are reviewed and are negative Constitutional: Constitutional: Denies fatigue and Denies fever(s) Cardiovascular: Cardiovascular: Denies chest pain and Denies dyspnea Respiratory: Respiratory: Denies dyspnea Gastrointestinal: Gastrointestinal: Denies abdominal pain Musculoskeletal: Musculoskeletal: Denies back pain, Denies arthralgias, Denies joint swelling, Reports numbness, Reports radiating pain into limb and Reports tingling Neurologic: Reports numbness and Reports tingling Endocrine: Endocrine: Denies fatigue PMF Past Medical History Attestation statement: The following information was validated with the patient. Medical History HTN (hypertension) GERD (gastroesophageal reflux disease) Headache Family History Family History Father No problems noted. Mother No problems noted. Maternal Grandmother Diabetes Social History Social History Housing: House Patient Tobacco Use Status: Former Tobacco user Smoked in Last 30 Days: No e-Cigarette/Vaping Use: Former Use Use of substances other than those prescribed or required for medical reasons: No Substance Use Type: Crack/Cocaine and Marijuana Advance Directives: No Advance Directives Information Provided: No Do you have a plan to hurt others: No Plan service: No Current occupational status: employed Cognitive needs: No Hearing needs: No Vision needs: No Physical Exam ED Vital Signs: Vital Signs - 24 hr 01/22/25 16:29 01/22/25 20:11 01/22/25 23:07 Temperature 98.8 F 98.2 F Pulse Rate 77 74 65 Pulse Rate [Left Ulnar] Respiratory Rate 20 16 17 Blood Pressure 133/84 112/63 112/58 L Pulse Oximetry 99 97 95 Oxygen Delivery Method Room Air Room Air Room Air 01/22/25 23:08 Temperature Pulse Rate Pulse Rate [Left Ulnar] 65 Respiratory Rate Blood Pressure Pulse Oximetry Oxygen Delivery Method BMI result Body Mass Index 27.5 Const Other: Alert Orientation/consciousness: patient oriented x3 Resp Effort & Inspection: normal respiratory effort Cardio Other: Normal peripheral perfusion Skin Other: Warm dry no rash Neuro General: patient oriented x3, gait normal, no focal motor deficits and CN's II- XI intact bilaterally Extrem Other: Strength 5/5 bilateral upper and lower extremities Psych Other: Cooperative Medical Decision Making Medical Decision Making MDM Narrative: 34-year-old male with a history of anxiety, prior sciatica, presents with multiple complaints. Patient states over the past 2 weeks he has been having panic attacks. He has also been having pain and paresthesia of left upper chest wall into the axilla with radiation of pain down the left upper extremity. Patient states he was running on the treadmill, once he rested, his heart rate remained elevated, he took Ativan his symptoms resolved. During that time, he had concurrent focal pain in his AC, and paresthesia of the left lower extremity. 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 Denies current back pain, paresthesia, urinary retention or bowel incontinence. Denies known injury to the cervical spine. Problem: Anxiety History: Per patient I have considered the following differential diagnoses: Cervical radiculopathy, lumbar radiculopathy, cauda equina, anxiety with a panic attack, Plan: Screening labs were ordered from triage and they are unremarkable, I am adding on imaging of the cervical spine. He likely is having radicular symptoms. I explained to him that this is not cardiac, paresthesias are not associated with cardiac pain. In regard to his lower extremity paresthesia, perhaps he inflamed a nerve root during his run. He has no red flag signs symptoms concerning for cord compression. I think he requires therapy. He also has an appointment with the general administrator tomorrow which is ideal. To note, all of his symptoms began 3 weeks ago after he used cocaine for the 1st time. He is perseverating over this. I have independently reviewed the following tests: Labs: No leukocytosis, not anemic, no electrolyte abnormality CT cervical spine:Findings: Straightening of the cervical spine is likely positional. No significant degenerative change. No acute fractures or dislocations. No acute findings on limited view of the intracranial contents. No cervical fluid collections or masses. Lung apices are clear. IMPRESSION: No acute findings. Lab Data 01/22/25 16:53 01/22/25 16:53 Labs: Lab Results 01/22/25 Range/Units 16:53 WBC 9.0 (4.8-10.8) X10*3/uL RBC 4.45 L (4.60-5.80) X10*6/uL Hgb 14.4 (14.0-18.0) g/dl Hct 40.3 L (42.0-52.0) % MCV 90.6 (80.0-98.0) fL MCH 32.4 (27.0-33.0) pg MCHC 35.7 (31.0-36.0) g/dl RDW 11.7 (11.0-16.0) % Plt Count 206 D (160-400) X10*3/uL MPV 8.2 L (9.4-12.4) fL Immature Gran % (Auto) 0.2 (0.0-0.4) % Neut % (Auto) 70.3 (45-73) % Lymph % (Auto) 19.9 L (20-40) % Sawyer % (Auto) 8.3 (2-11) % Eos % (Auto) 1.1 (0-4) % Baso % (Auto) 0.2 (0-2) % Lymph # (Auto) 1.8 (1.2-4.9) X10*3/uL Sawyer # (Auto) 0.8 (0.1-1.2) X10*3/uL Eos # (Auto) 0.1 (0.0-0.4) X10*3/uL Baso # (Auto) 0.0 (0.0-0.2) X10*3/uL Abs Immat Gran (auto) 0.02 (0.00-0.03) X10*3/uL Absolute Neuts (auto) 6.3 (2.0-8.3) x10*3/uL Absolute Nucleated RBC 0.000 (0.0-0.012) X10*3/uL Nucleated RBC % (auto) 0.0 (0.0-0.2) /100WBC Sodium 137 (135-145) mmol/L Potassium 3.5 (3.3-5.1) mmol/L Chloride 102 (96-108) mmol/L Carbon Dioxide 27 (22-29) mmol/L Anion Gap 12 (12-20) BUN 13 (9-16) mg/dL Creatinine 0.95 (0.5-1.4) mg/dL Estim Creat Clear Calc 120.2 Estimated GFR > 60 Random Glucose 93 (60-115) mg/dL Calcium 9.1 D (8.4-10.2) mg/dL Magnesium 2.1 (1.6-2.6) mg/dL Total Bilirubin 0.8 (0.0-1.0) mg/dL AST 26 (5-37) U/L ALT 28 (0-40) U/L Alkaline Phosphatase 75 (39-117) U/L Total Protein 7.1 (6.5-8.0) g/dL Albumin 4.5 (3.5-5.0) g/dL Discharge Plan Discharge Clinical Impression: Anxiety Patient Disposition: Home, Self-Care Instructions: Anxiety (ED), Panic Disorder (ED) Additional Instructions: All of your screening labs were normal, there were no acute findings on the CT scan of the cervical spine. I do feel that all of the symptoms you have been experiencing are secondary to anxiety with panic attack. Keep your pending appointment with your general administrator. You were given resources for outpatient therapy. If the tingling sensation in your left upper extremity continues, you should follow up with the primary care, they can order an MRI as an outpatient to rule out inflammation and/or impingement of the nerve roots in your neck. Prescriptions: No Action metoprolol succinate 25 mg tablet extended release 24 hr 12.5 mg PO BID 30 Days Qty: 30 4RF lorazepam [Ativan] 0.5 mg tablet 0.5 mg PO DAILY PRN (Reason: anxiety) 14 Days Qty: 14 0RF buspirone 7.5 mg tablet 7.5 mg PO BID 30 Days Qty: 60 3RF Print Language: Argentine
[2025-01-22 23:07] VITALS: BP 112/58; PULSE 65; RESP 17; O2SAT 95
[2025-01-22 23:08] VITALS: PULSE 65
[2025-01-23 01:23] VITALS: BP 123/68; PULSE 71; RESP 16; TEMP 36.7; O2SAT 98
== END 2025-01-23 01:23 | disposition home or self-care (01) ==
PROVIDERS: Emergency Provider Emergency Medicine; PCP Nurse Practitioner Family
DX: F41.9 Anxiety disorder, unspecified (principal); R20.2 Paresthesia of skin; F41.0 Panic disorder [episodic paroxysmal anxiety]; M54.10 Radiculopathy, site unspecified; R07.89 Other chest pain; K21.9 Gastro-esophageal reflux disease without esophagitis; I10 Essential (primary) hypertension
CPT/HCPCS: 36415; 72125; 80053; 83735; 85025; 99284

== ENCOUNTER → 2025-01-22 22:49 | Outpatient (BNV) | payer BC, SELFPAY | PROVIDERS: Emergency Provider Emergency Medicine; PCP Nurse Practitioner Family; Visit Provider Radiology Diagnostic Radiology | DX: M54.2 Cervicalgia (principal) | CPT/HCPCS: 72125 ==

== ENCOUNTER → 2025-01-23 08:00 | Outpatient (REF) | payer BC, SELFPAY ==
--- NOTE | 2025-01-23 08:03 | CA_ITS ---
Transthoracic Echocardiogram Patient (Last, First, Middle): Kevin Ayon, Gender: Male Date of : 1990 Age: 34 Procedure Date: 01/23/2025 Procedure Type: Transthoracic Echocardiogram Location: OP Height: 182.88 cm Weight: 90.72 kg BSA: 2.13 m2 Heart Rate: bpm Plow Holder: SOPHIE Referring MD: Jones Gatica [facility]- User Experience Lead: Humphrey Lagos MD Symptoms: R00.2 - Palpitations Study Quality: Good ECG Rhythm: Sinus Conclusions: - Normal study Findings Left Ventricle Normal left ventricular size, thickness, and systolic function. The visually estimated ejection fraction is between 60-65%. Diastolic function is normal for age. Right Ventricle Normal right ventricular cavity size and systolic function. Atria Both atria are normal in size. Aortic Valve Normal aortic valve structure and function. There is no aortic valve stenosis. There is no aortic valve regurgitation. Mitral Valve Normal mitral valve structure and function. There is trace mitral valve regurgitation. There is no mitral valve stenosis. Pulmonic Valve The pulmonic valve is likely normal. There is trace pulmonic valve regurgitation. Tricuspid Valve Normal tricuspid valve structure. There is trace tricuspid valve regurgitation. The right ventricular systolic pressure is normal. The right ventricular systolic pressure is 27 mmHg. Normal right atrial pressure. There is no evidence of pulmonary hypertension. Great Vessels All visible segments of the aorta are normal in size. The pulmonary artery was not well visualized. Venous The inferior vena cava is normal in size and collapses greater than 50% with inspiration. Pericardium/Pleural There is no evidence of pericardial effusion. Measurements 2D Linear Measurements IVSd: 0.91 0.6-0.9/0.6-1.0 cm LVIDd: 5.33 3.9-5.3/4.2-5.9 cm LVIDd Index: 2.50 2.4-3.2/2.2-3.1 cm/m2 LVIDs: 3.40 2.0-3.6 cm LVPWd: 0.94 0.7-1.1 cm Ao Root: 3.20 2.1-3.5 cm LA Diam: 3.90 2.7-3.8/3.0-4.0 cm LAIDs Index: 1.83 1.5-2.3 cm/m2 LV Mass: 226.03 67-162/88-224 g LV Mass Index: 106.12 43-95/49-115 g/m2 LVOT Diam: 2.50 3.0+(-)1.3 cm Mitral Valve MV Pk E: 0.85 MV PK A: 0.67 MV Decel Time: 168.00 E/A: 1.30 E'Lateral: 17.30 E'Medial: 12.90 E/E' Med: 6.60 E/E' Lat: 4.90 PHT: 49.00 MVA PHT: 4.49 Decel [place]: 5.05 Aortic Valve AoV Pk Shon: 1.45 AoV Mn Shon: 0.89 AoV VTI: 0.29 AoV Pk Grad: 8.00 Aov Mn Grad: 4.00 JENSEN Cont.VTI: 4.29 LVOT LVOT Pk Shon: 1.22 LVOT Mn Shon: 0.77 LVOT VTI: 0.26 LVOT Pk Grad: 6.00 LVOT Mn Grad: 3.00 LVOT Diam: 2.50 LVOT Area: 4.91 Diastolic Function MV Pk E: 0.85 MV Pk A: 0.67 E/A: 1.30 E'Medial: 12.90 E/E' Med: 6.60 E' Laterial: 17.30 E/E' Lat: 4.90 Right Ventricle TAPSE (mm): 32.00 TVS' Shon: 17.00 Tricuspid Valve TR Pk Shon: 2.45 TR Pk Grad: 24.00 RA Press: 3.00 RVSP: 27.00 Great Vessels Aorta Ao Root-2D: 3.20 2.0-3.7 cm Ao Asc: 3.10 2.1-3.4 cm Pulmonary Valve PV Pk Shon: 1.28 Peak PV Grad: 7.00 Updated in Other Vendor System with Status of Final Humphrey Lagos MD electronically signed on 01/23/2025 3:42:07 PM with status of Final
== END ==
LOC: HO.CARD 08:00
PROVIDERS: PCP Nurse Practitioner Family; Visit Provider Nurse Practitioner Family
DX: R00.2 Palpitations (principal)
CPT/HCPCS: 93242; 93306

== ENCOUNTER → 2025-01-23 08:03 | Outpatient (BNV) | payer BC, SELFPAY | PROVIDERS: PCP Nurse Practitioner Family; Visit Provider Internal Medicine Cardiovascular Disease | DX: I34.0 Nonrheumatic mitral (valve) insufficiency (principal); I37.1 Nonrheumatic pulmonary valve insufficiency; I36.1 Nonrheumatic tricuspid (valve) insufficiency | CPT/HCPCS: 93306 ==

== ENCOUNTER → 2025-01-25 07:57 | Outpatient (REF) | payer BC, SELFPAY ==
--- NOTE | 2025-01-25 08:03 | CA_ITS ---
Acquisition Time: 2025-01-25 08:11:24 Total Exercise Time: 00:11:27 Test Indications: CP,Dyspnea Medications: BUSPIRONE Protocol: IRVIN Max HR: 160 BPM 86% of Pred: 186 BPM Max BP: 158/76 mmHG Max Work Load: 13.4 METS Exercise stress test with exercise 11 mins 27 secs of Irvin Protocol, achieving 86% MPHR, with reports of 2/10 left sided chest pressure throughout exercise that resolved during early recovery, with isolated PVC, with normotensive response to exercise. Without EKG chnages meeting criteria for ischemia. In recovery, pt continued to walk slowly for additional few minutes as requested. Recommend stress echo to fuether evaluate the chest pressure. Test reviewed with Dr. Noe. Referred By: Jones Gatica Electronically Signed By: Hossein Lauren
== END ==
LOC: HO.CARD 07:57
PROVIDERS: PCP Nurse Practitioner Family; Visit Provider Nurse Practitioner Family
DX: R00.2 Palpitations (principal)
CPT/HCPCS: 93017

== ENCOUNTER → 2025-01-25 08:03 | Outpatient (BNV) | payer BC, SELFPAY | PROVIDERS: PCP Nurse Practitioner Family | DX: I49.3 Ventricular premature depolarization (principal) | CPT/HCPCS: 93016; 93018 ==

== ENCOUNTER 2025-02-07 15:38 | Outpatient (AMB) | payer BC, SELFPAY ==
--- NOTE | 2025-02-07 15:42 | MHC.OFFWIV ---
Intake Vital Signs 02/07/25 15:49 BMI Reason not done Patient refused/unable BP 118/78 Blood Pressure Location Rt brachial Position Sitting Pulse 57 Pulse Source Pulse Oximeter Pulse Oximetry (%) 98 Oxygen Delivery Method Room Air Intake Visit Reasons: EP Pain on LT arm Intake Note: Patient here for left arm pain after he had some blood drawn a couple of weeks ago. Patient Tobacco Use Status: Former Tobacco user Allergies No Known Allergies Allergy (Verified 02/07/25 15:49) Do you need a note to return to daycare/school/sports/work: No HPI HPI Comments History of Present Illness Details 34 y/o Male patient who presents to the walk in clinic with c/o left arm pain after he had some blood drawn a couple of weeks ago. Pt reports pain and tenderness around the Antecubital Fossa region, since he had blood drawn ~ 2-4 weeks ago. He is wondering why the area is table tender to touch for weeks. Reports pain worse with Bending Left Arm to lift objects at work. Denies Severe CP, SOB or cough. Denies Tingling or Numbness. [facility] Medical History (Updated 02/07/25 @ 17:06 by Naida Norris NP) Pain of left upper extremity HTN (hypertension) GERD (gastroesophageal reflux disease) Headache Family History Father No problems noted. Mother No problems noted. Maternal Grandmother Diabetes Social History Housing: House Patient Tobacco Use Status: Former Tobacco user e-Cigarette/Vaping Use: Former Use Substance Use Type: Crack/Cocaine and Marijuana service: No Current occupational status: employed Cognitive needs: No Hearing needs: No Vision needs: No Review of Systems Const All systems reviewed & are unremarkable except as noted in HPI and below Physical Exam Vital Signs: Last Vital Signs Pulse 57 02/07/25 15:49 BP 118/78 02/07/25 15:49 Pulse Ox 98 02/07/25 15:49 Oxygen Delivery Method Room Air 02/07/25 15:49 Const General: no acute distress Nutritional Appearance: well nourished Orientation/consciousness: patient oriented x3 Resp Effort & Inspection: normal respiratory effort Auscultation: clear to auscultation bilaterally, no crackles, no rales, no rhonchi and no wheezes Cardio Heart sounds: S1 normal heart sound present and S2 normal heart sound present Neuro General: patient oriented x3, gait normal and moves all extremities Motor exam (neuro): 5/5 motor strength present throughout Extrem Right upper extremity: normal to inspection and full ROM Left upper extremity: elbow/forearm Elbow/forearm/wrist images: 1. Skin intact, no swelling, [place] in color, covered in Tattoos, Mild TTP. No signs of Vein swelling, and Pulses WNL. Psych Speech and movement: Normal speech and movement present Assessment & Plan Assessment & Plan (1) Pain of left upper extremity: Code(s): M79.602 - Pain in left arm Plan: Low risk for Upper Extremity DVT at this time. No changes to skin color or swelling, very mild tenderness. Will continue to monitor Advised to apply Ice/Hot NSAIDs for pain relief. Coding Level of Care Code Est Pt Level 4 (03257) Diagnoses Pain of left upper extremity M79.602 Time Spent (min) 20
[2025-02-07 15:49] VITALS: BP 118/78; PULSE 57; O2SAT 98
== END 2025-02-07 16:08 | disposition home or self-care (01) ==
PROVIDERS: PCP Nurse Practitioner Family; Visit Provider Nurse Practitioner Family
DX: M79.602 Pain in left arm (principal)

== ENCOUNTER → 2025-02-07 15:38 | Outpatient (BNVA) | payer BC, SELFPAY | PROVIDERS: PCP Nurse Practitioner Family; Visit Provider Nurse Practitioner Family ==

== ENCOUNTER 2025-03-14 07:18 | Outpatient (AMB) | payer BC, SELFPAY ==
--- NOTE | 2025-03-14 08:09 | A.OFFPC_ITS ---
Intake Visit Reasons: 2m follow up Allergies No Known Allergies Allergy (Verified 03/14/25 08:27) Medication List - Last [facility] buspirone 15 mg PO DAILY lorazepam (Ativan) 0.5 mg PO DAILY PRN 14 days metoprolol succinate ER 12.5 mg (1/2 x 25 mg) PO BID 30 days omeprazole 20 mg PO DAILY Tobacco use date assessed: 01/10/25 Dental Screening Dental Screen Date: 01/10/25 HPI 2m follow up HPI Details History of Present Illness The patient is a 34-year-old male presenting with anxiety and left upper quadrant abdominal discomfort. The patient has been experiencing anxiety for which he was prescribed Buspirone and intermittent lorazepam. He reports that the initial dosage of Buspirone at 15 mg twice daily was excessive, leading to a reduction to 10 mg twice daily, which has resulted in significant improvement. The patient also reports left upper quadrant abdominal discomfort accompanied by frequent belching. He was initially prescribed omeprazole, which provided approximately 30% relief of symptoms. There is no associated nausea, vomiting, or hematochezia. The patient has a history of a stress test and is scheduled for a stress echocardiogram as part of his ongoing cardiac evaluation. Currently on a low dose BB Review of Systems - Gastrointestinal: Reports left upper q uadrant abdominal discomfort and frequent belching. Denies nausea, vomiting, or hematochezia. - Respiratory: Denies dyspnea or chest p ain Plan The patient will continue with Buspirone at the adjusted dose of 10 mg twice daily for anxiety management, as he reports significant improvement with this regimen. For the left upper quadrant abdominal discomfort, the patient will switch from omeprazole to a higher dose proton pump inhibitor, pantoprazole, to enhance symptom relief. An abdominal ultrasound will be conducted to further investigate the cause of the abdominal discomfort. The patient is advised to follow up with cardiology for a stress echocardiogram and subsequent evaluation. He is instructed to seek emergency care if symptoms worsen or new symptoms develop, and to contact the clinician via the patient portal for any concerns. Discussion Notes I discussed with the patient the management of his anxiety with Buspirone, emphasizing the importance of adhering to the adjusted dosage for optimal results. We also reviewed the plan to switch to pantoprazole for better control of his abdominal symptoms and the need for an abdominal ultrasound to rule out any underlying issues. I advised him on the upcoming stress echocardiogram and the importance of following up with cardiology. The patient was instructed to seek immediate medical attention if his symptoms worsen or if he experiences any new concerning symptoms. Patient Instructions - Continue taking Buspirone 10 mg twice daily as prescribed. - Switch to pantoprazole as directed for abdominal discomfort. - Attend the scheduled abdominal ultraso und and cardiology follow-up. - Go to the ER if symptoms worsen or new symptoms appear. - Contact the clinician via the patient portal for any concerns. [facility] Medical History (Updated 03/14/25 @ 08:12 by JANE Barkley) Pain of left upper extremity HTN (hypertension) GERD (gastroesophageal reflux disease) Headache Family History Father No problems noted. Mother No problems noted. Maternal Grandmother Diabetes Social History Housing: House Patient Tobacco Use Status: Former Tobacco user e-Cigarette/Vaping Use: Former Use Substance Use Type: Crack/Cocaine and Marijuana service: No Current occupational status: employed Cognitive needs: No Hearing needs: No Vision needs: No Questionnaire Thrive Questionnaire Date Thrive assessed: 01/03/25 I am a: Patient What is your living situation today?: I have a steady place to live Within the past 12 months, did the food you bought not last and you didn't have the money to get more?: I choose not to answer this question Within the past 12 months, did you worry whether your food would run out before you got money to buy more?: I choose not to answer this question Do you have trouble paying for medicines?: I choose not to answer this question Do you have trouble getting transportation to medical appointments?: I choose not to answer this question Do you have trouble paying your heating and electricity bill?: I choose not to answer this question Do you have trouble taking care of your child, family member or friend?: I choose not to answer this question Do you have trouble with day-to-day activities such as bathing, preparing meals, shopping, managing finances, etc.?: I choose not to answer this question Are you currently unemployed and looking for a job?: I choose not to answer this question Are you interested in more education?: I choose not to answer this question Please select the resources that you would like help with: None Currently or been in a relationship where the following occur: I choose not to answer THRIVE Score: 0 JAMIE-7 AMB Questionnaire JAMIE-7 Date JAMIE - 7 assessed: 01/10/25 Source: Developed by Drs. Talon Monroy, Mindy Burnham, Adolfo Allen and colleagues, with an educational huy from [employer]. Physical exam (Primary Care) Tobacco/Smoking Status: Tobacco use Status Tobacco use date assessed 01/10/25 01/10/25 15:28 Patient Tobacco Use Status Former Tobacco user 02/07/25 15:43 e-Cigarette/Vaping Use Former Use 01/10/25 15:28 Thrive Assessment: Date of Thrive Assessment Date Thrive assessed 01/03/25 03/07/25 11:52 Currently or been in a relationship where the following occur: I choose not to answer Telehealth Telehealth Telehealth Platform: [facility] Location of provider rendering services: practice address Location of patient: address on file Patient Identification confirmed using: Name, : Yes Telehealth method: video Patient verbally consented to treatment: Yes Patient verbally consented to billing insurance company: Yes Patient informed of any privacy concerns related to visit: Yes Minutes spent on Phone/Video with Pt.: 15 Coding Level of Care Code Tele Est Pt Level 3 (45845) Diagnoses LUQ abdominal tenderness R10.812 Anxiety F41.9 Chest pressure R07.89 Assessment & Plan Assessment & Plan (1) LUQ abdominal tenderness: Code(s): R10.812 - Left upper quadrant abdominal tenderness Category: Medical (2) Anxiety: Code(s): F41.9 - Anxiety disorder, unspecified Category: Medical (3) Chest pressure: Code(s): R07.89 - Other chest pain Category: Medical Plan . Orders: Orders US abdomen complete Today R10.812 - Left upper quadrant abdominal tenderness TSH reflex Free T4 Today F41.9 - Anxiety disorder, unspecified, R07.89 - Other chest pain, R10.812 - Left upper quadrant abdominal tenderness Complete Blood Count Auto Diff Today F41.9 - Anxiety disorder, unspecified, R07.89 - Other chest pain, R10.812 - Left upper quadrant abdominal tenderness Comprehensive Met. Panel Today F41.9 - Anxiety disorder, unspecified, R07.89 - Other chest pain, R10.812 - Left upper quadrant abdominal tenderness Medications: New pantoprazole 40 mg PO DAILY 30 tabs 3RF 30 days buspirone 10 mg PO BID 60 tabs 4RF 30 days Discontinued omeprazole Discontinued Reason: Doctor's Order 20 mg PO DAILY 90 caps 0RF
== END 2025-03-14 09:30 | disposition home or self-care (01) ==
LOC: HO.HMCC 07:18
PROVIDERS: PCP Nurse Practitioner Family; Visit Provider Nurse Practitioner Family
DX: R10.812 Left upper quadrant abdominal tenderness (principal); F41.9 Anxiety disorder, unspecified; R07.89 Other chest pain

== ENCOUNTER → 2025-03-14 07:18 | Outpatient (BNVA) | payer BC, SELFPAY | PROVIDERS: PCP Nurse Practitioner Family; Visit Provider Nurse Practitioner Family | DX: Z13.89 Encounter for screening for other disorder (principal) ==

== ENCOUNTER 2025-03-21 12:22 | Outpatient (REF) | payer BC, SELFPAY ==
[2025-03-21 13:17] LABS: MANUAL DIFF FLAG NO
[2025-03-21 13:21] LABS: Basophils Percent Auto 0.3 % (0-2); Eosinophils Percent Auto 0.2 % (0-4); Hematocrit 42.9 % (42.0-52.0); Hemoglobin 15.2 g/dl (14.0-18.0); Imm Gran Abs Auto 0.03 X10*3/uL (0.00-0.03); Imm Gran Pct Auto 0.3 % (0.0-0.4); Lymphocytes Absolute Auto 2.2 X10*3/uL (1.2-4.9); Lymphocytes Percent Auto 25.1 % (20-40); Mean Corpuscular HGB Conc 35.4 g/dl (31.0-36.0); Mean Corpuscular Hemoglobin 31.8 pg (27.0-33.0); Mean Corpuscular Volume 89.7 fL (80.0-98.0); Mean Platelet Volume 8.8 fL (9.4-12.4); Monocytes Absolute Auto 0.4 X10*3/uL (0.1-1.2); Monocytes Percent Auto 5.1 % (2-11); Neutrophils Absolute Auto 5.9 x10*3/uL (2.0-8.3); Platelet Count 241 X10*3/uL (160-400); Red Blood Count 4.78 X10*6/uL (4.60-5.80); Red Cell Distribution Width 11.4 % (11.0-16.0); White Blood Count 8.6 X10*3/uL (4.8-10.8)
[2025-03-21 14:04] LABS: Alanine Aminotransferase 29 U/L (0-40); Albumin Level 4.9 g/dL (3.5-5.0); Alkaline Phosphatase 78 U/L (39-117); Anion Gap 13 (12-20); Aspartate Amino Transferase 26 U/L (5-37); Bilirubin Total 1.1 mg/dL (0.0-1.0); Blood Urea Nitrogen 16 mg/dL (9-16); Calcium 9.9 mg/dL (8.4-10.2); Carbon Dioxide 25 mmol/L (22-29); Chloride 106 mmol/L (96-108); Estimated Glomerular Filt Rate > 60; Glucose Random 73 mg/dL (60-115); Potassium 3.8 mmol/L (3.3-5.1); Sodium 140 mmol/L (135-145); Total Protein 7.3 g/dL (6.5-8.0)
[2025-03-21 14:45] LABS: TSH reflex Free T4 0.35 uIU/mL (0.32-4.0)
== END 2025-03-21 12:23 | disposition home or self-care (01) ==
LOC: HO.HMGCLDS 12:22
PROVIDERS: PCP Nurse Practitioner Family; Visit Provider Nurse Practitioner Family
DX: F41.9 Anxiety disorder, unspecified (principal); R10.812 Left upper quadrant abdominal tenderness; R07.89 Other chest pain; F41.8 Other specified anxiety disorders
CPT/HCPCS: 36415; 80053; 84443; 85025

== ENCOUNTER → 2025-03-28 10:47 | Outpatient (REF) | payer BC, SELFPAY ==
--- NOTE | 2025-03-28 10:50 | CA_ITS ---
Acquisition Time: 2025-03-28 11:14:39 Total Exercise Time: 00:12:00 Test Indications: CP, HTN Medications: SEE H&P Protocol: JOSE Max HR: 173 BPM 93% of Pred: 186 BPM Max BP: 180/70 mmHG Max Work Load: 13.4 METS Exercise stress test with exercise 12 mins of Jose Protocol, achieving 87% MPHR, with reports of dizziness in the initial phase that resolved during exercise, with reports of SOB, no chest pain, with isolated PVC, with normotensive response to exercise. Without EKG changes meeting criteria for ischemia. In recovery, breathing returned to baseline. Echo images obtained by tech at rest and post peak exercise. Definity contrast utilized. Test reviewed with Dr. Lagos. Referred By: Jones Gatica Electronically Signed By: Hossein Lauren
== END ==
LOC: HO.CARD 10:47
PROVIDERS: PCP Nurse Practitioner Family; Visit Provider Nurse Practitioner Family
DX: R07.89 Other chest pain (principal); R94.39 Abnormal result of other cardiovascular function study
CPT/HCPCS: 93350; Q9957

== ENCOUNTER → 2025-03-28 10:50 | Outpatient (BNV) | payer BC, SELFPAY | PROVIDERS: PCP Nurse Practitioner Family | DX: R06.02 Shortness of breath (principal); I49.3 Ventricular premature depolarization | CPT/HCPCS: 93016; 93018; 93350; 93352 ==

== ENCOUNTER 2025-04-08 18:43 | Emergency (ER) | payer BC, SELFPAY ==
--- NOTE | ~2025-04-08 | US_ITS ---
CLINICAL HISTORY: pain, swelling Venous duplex ultrasound left lower extremity Comparison: None provided Findings: The visualized deep veins are fully compressible with normal Doppler color flow and spectral tracings. No popliteal cyst. IMPRESSION: 1. Negative for left lower extremity deep vein thrombosis. This document has been electronically signed by: Katlin Eric MD on 04/08/2025 20:17:02
--- NOTE | ~2025-04-08 | XR_ITS ---
CLINICAL HISTORY: pain, injury 4 view left knee Comparison: None provided Findings: Bones intact. No dislocations. No significant arthritic change or erosions. Small joint effusion. No radiopaque foreign body. IMPRESSION: No acute fracture This document has been electronically signed by: Katlin Eric MD on 04/08/2025 19:50:07
[2025-04-08 19:00] VITALS: BP 119/77; PULSE 60; RESP 18; TEMP 36.2; O2SAT 97; BMI 27.2
--- NOTE | 2025-04-08 19:04 | ED_ITS ---
HPI - General Adult General Chief complaint: Extremity Injury, Lower Stated complaint: L leg swelling, painful. ?blood clot Time Seen by Provider: 04/08/25 20:08 Source: patient Mode of arrival: ambulatory Limitations: no limitations History of Present Illness HPI narrative: 34-year-old male with a history of anxiety, presents for evaluation of left leg pain. Patient states that on Tuesday he was doing heavy lifting, doing rock work at his home. Denies any specific injury however the following day he had soreness to the left leg. It is particularly noted behind the left knee and radiates to the left hamstring. He denies any direct trauma. The patient is able to ambulate without difficulty. He has not tried any medication for this. He denies any paresthesias or paralysis. No bowel or bladder incontinence. No recent travel. No calf swelling. No chest pain or shortness of breath. Patient is concerned due to the area where he is having pain that he may have a possible blood clot. He does not have a coagulation history or family history. Related Data Previous Rx's ?Medication ?Instructions ?Recorded lorazepam 0.5 mg tablet (Ativan) 0.5 mg PO DAILY PRN a nxiety 14 01/14/25 days #14 tabs metoprolol succinate 25 mg 12.5 mg (1/2 x 25 mg) PO BI D 30 01/14/25 tablet,extended release 24 hr days #30 tabs buspirone 10 mg tablet 10 mg PO BID 30 days #60 tab s 03/14/25 pantoprazole 40 mg tablet,delayed 40 mg PO DAILY 30 da ys #30 tabs 03/14/25 release Allergies Allergy/AdvReac Type Severity Reaction Status Date / Time No Known Allergies Allergy Verified 04/08/25 19:06 Review of Systems Review of Systems: Yes all other systems are reviewed and are negative Constitutional: Constitutional: Denies chills and Denies fever(s) Cardiovascular: Cardiovascular: Denies chest pain, Denies palpitations, Denies dyspnea, Denies dyspnea on exertion and Denies orthopnea Respiratory: Respiratory: Denies cough, Denies dyspnea and Denies dyspnea on exertion Gastrointestinal: Gastrointestinal: Denies abdominal pain, Denies melena, Denies hematochezia, Denies diarrhea, Denies nausea and Denies vomiting Genitourinary: Genitourinary: Denies difficulty urinating, Denies dysuria and Denies urinary urgency Musculoskeletal: Musculoskeletal: Denies back pain, Denies muscle cramps, De nies muscle weakness and Denies numbness Integumentary/Breasts: Skin/Breast: Denies rash Neurologic: Denies focal weakness and Denies numbness Psychiatric: Psychiatric: Denies depression Endocrine: Endocrine: Denies palpitations [facility] Past Medical History Medical History (Updated 04/08/25 @ 20:39 by ANYI Garces) Pain of left upper extremity HTN (hypertension) GERD (gastroesophageal reflux disease) Headache Family History Family History Father No problems noted. Mother No problems noted. Maternal Grandmother Diabetes Social History Social History Housing: House Patient Tobacco Use Status: Former Tobacco user e-Cigarette/Vaping Use: Former Use Substance Use Type: Crack/Cocaine and Marijuana service: No Current occupational status: employed Cognitive needs: No Hearing needs: No Vision needs: No Physical Exam ED Vital Signs: Vital Signs - 24 hr 04/08/25 19:00 Temperature 97.2 F Pulse Rate 60 Respiratory Rate 18 Blood Pressure 119/77 Pulse Oximetry 97 Oxygen Delivery Method Room Air BMI result Body Mass Index 27.2 Const General: cooperative, alert and awake Back/Spine/Pelvis Other: No spinous, paraspinous or paravertebral tenderness. Extrem Other: Clinical Application Manager is 5/5 bilaterally. Full range of motion of all lower extremities. No sciatic notch tenderness bilaterally. There is mild tenderness to the left popliteal region, medial aspect. Mild tenderness to the left mid hamstring, no palpable nodules. No calf tenderness or edema bilaterally. No erythema. Course Course Course Narrative: RME performed by Sofiya Correa PA-C. Patient is a 34 year old assigned male at presenting to the emergency department with left knee / lower leg pain. Detailed physical exam and review of systems are deferred to the test equipment mechanic. Imagin ordered. Patient placed back in the waiting room pending room availability and results. Medical Decision Making Medical Decision Making MDM Narrative: 34-year-old male with history of anxiety, presents for evaluation of left leg pain. Concern for musculoskeletal injury. No evidence of DVT on ultrasound, x- ray also negative for acute process. Patient feels comfortable with discharge plan home and conservative treatment. Reviewed all discharge instructions. No further questions at this time. Differential Diagnosis Differential Diagnoses: The differential diagnosis associated with the presentation includes DVT Muscle strain Disc herniation Muscle spasm Radiology Impression Discussion of test interpretation with radiology: I have reviewed the radiologist's reading. Prescription Management I considered prescription management with: Pain Medication Discharge Plan Discharge Clinical Impression: Hamstring muscle strain Patient Disposition: Home, Self-Care Instructions: Hamstring Injury (ED), Hamstring Exercises (ED) Additional Instructions: Rest. Avoid strenuous activity. Warm compresses to the affected area. Gentle stretching. Tylenol or ibuprofen available [id number] for pain. Follow-up with your primary care provider. Call this week to schedule a follow- up appointment. Return to the emergency department if you have any worsening of symptoms, or any concerns. Get well soon! Prescriptions: No Action metoprolol succinate 25 mg tablet extended release 24 hr 12.5 mg PO BID 30 Days Qty: 30 4RF lorazepam [Ativan] 0.5 mg tablet 0.5 mg PO DAILY PRN (Reason: anxiety) 14 Days Qty: 14 0RF pantoprazole 40 mg tablet,delayed release (DR/EC) 40 mg PO DAILY 30 Days Qty: 30 3RF buspirone 10 mg tablet 10 mg PO BID 30 Days Qty: 60 4RF Print Language: Irish
[2025-04-08 20:54] VITALS: BP 119/77; PULSE 60; RESP 18; TEMP 36.2; O2SAT 97
== END 2025-04-08 20:54 | disposition home or self-care (01) ==
PROVIDERS: Emergency Provider Emergency Medicine; PCP Nurse Practitioner Family
DX: S76.812A Strain of other specified muscles, fascia and tendons at thigh level, left thigh, initial encounter (principal); X50.0XXA Overexertion from strenuous movement or load, initial encounter; Y93.9 Activity, unspecified; Y92.9 Unspecified place or not applicable; Y99.9 Unspecified external cause status; M79.605 Pain in left leg
CPT/HCPCS: 73562; 93971; 99282; 99284

== ENCOUNTER → 2025-04-08 19:05 | Outpatient (BNV) | payer BC, SELFPAY | PROVIDERS: PCP Nurse Practitioner Family; Visit Provider Nuclear Medicine | DX: M79.662 Pain in left lower leg (principal); R22.42 Localized swelling, mass and lump, left lower limb; S89.90XA Unspecified injury of unspecified lower leg, initial encounter; M25.562 Pain in left knee | CPT/HCPCS: 73562; 93971 ==

== ENCOUNTER 2025-04-17 13:45 | Outpatient (REF) | payer BC, SELFPAY ==
--- NOTE | ~2025-04-17 | US_ITS ---
CLINICAL HISTORY: R10.812 - Left upper quadrant abdominal tenderness US abdomen complete Comparison: None provided Findings: The visualized pancreas is normal. The aorta and inferior vena cava are normal caliber. The liver is normal in size and echotexture. There is no intrahepatic bile duct dilatation. The common duct is 3 mm in diameter. The gallbladder is normal. There is no sonographic Boudreaux sign. The main portal vein is antegrade. The right kidney is 12.3 cm in length. A 1 cm simple appearing cyst is incidentally noted within the right kidney. The left kidney is 8.3 cm in length. The spleen is normal. No ascites. IMPRESSION: 1. No acute abdominal disease. 2. Relatively small left kidney compatible with a degree of atrophy. This document has been electronically signed by: Celi Jo MD on 04/18/2025 14:35:17
== END 2025-04-17 13:46 | disposition home or self-care (01) ==
LOC: HO.HMGCX 13:45
PROVIDERS: PCP Nurse Practitioner Family; Visit Provider Nurse Practitioner Family
DX: R10.812 Left upper quadrant abdominal tenderness (principal)
CPT/HCPCS: 76700

== ENCOUNTER → 2025-04-17 13:52 | Outpatient (BNV) | payer BC, SELFPAY | PROVIDERS: PCP Nurse Practitioner Family; Visit Provider Radiology Diagnostic Radiology | DX: R10.812 Left upper quadrant abdominal tenderness (principal) | CPT/HCPCS: 76700 ==

== ENCOUNTER 2025-05-22 08:49 | Outpatient (AMB) | payer BC, SELFPAY ==
[2025-05-22 08:55] VITALS: BP 122/80; PULSE 70; BMI 27.2
--- NOTE | 2025-05-22 08:55 | MHC.OFFVIS ---
Vital Signs 05/22/25 08:55 Height 6 ft Weight 200 lb 9.93 oz BMI 27.2 BP 122/80 Blood Pressure Location Lt brachial Position Sitting Pulse 70 Intake Visit Reasons: JAILKEEPER/Abn results/chest pain/Glogowski Intake Note: New patient post stress echo and holter c/o palpitations Shactor Required: No Allergies No Known Allergies Allergy (Verified 04/08/25 19:06) Medication List - Last Reconciled 05/22/25 by Humphrey Lagos MD buspirone 7.5 mg PO BID buspirone 7.5 mg PO BID lorazepam (Ativan) 0.5 mg PO DAILY PRN 14 days metoprolol succinate ER 12.5 mg (1/2 x 25 mg) PO BID 30 days HPI Comments Details: Thank you for referring Kevin in cardiology consultation today for symptoms of palpitations. He is a pleasant but anxious 34-year-old male with no significant other past medical history who recently after using heavy alcohol use and then tried cocaine. Subsequently started developing palpitations in his chest. He got really concerned about it. He then subsequently had a workup including a stress echocardiogram which at very high workload was negative for ischemia. Echocardiogram overall shows normal structure of the heart. Holter monitor showed rare PVCs although he had significant symptoms and all correlated with isolated rare PVCs. He continues to have these symptoms. He was therefore started on metoprolol therapy to help with the symptoms. However subsequently has developed some side effects related to metoprolol therapy including out fatigue and lack of exercise capacity as well as some erectile dysfunction. However since this episode patient is also significantly modified his lifestyle with complete cessation of caffeine and alcohol intake. He is obviously not using cocaine. He has also modified his lifestyle with participate in stress mitigation strategies such as yoga and has also cut down his salt intake. He has notice that his blood pressures improved. He has had no exertional chest pain. 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 He has no shortness of breath, orthopnea, PND. No lightheadedness, syncope. He however gets intermittent episodes of left upper quadrant pressure radiating into the chest. He then burps in his symptoms go away. He did a trial of omeprazole but did not help his symptoms much. He also has point tenderness in the lower ribcage area which has been present for few months. [facility] Medical History (Updated 05/22/25 @ 09:29 by Humphrey Lagos MD) HTN (hypertension) Pain of left upper extremity GERD (gastroesophageal reflux disease) Headache Family History Father No problems noted. Mother No problems noted. Maternal Grandmother Diabetes Social History Housing: House Patient Tobacco Use Status: Former Tobacco user e-Cigarette/Vaping Use: Former Use Substance Use Type: Crack/Cocaine and Marijuana service: No Current occupational status: employed Cognitive needs: No Hearing needs: No Vision needs: No Review of Systems Const Denies chills, Denies daytime sleepiness, Denies fatigue, Denies fever(s), Denies frequent falls, Denies poor appetite, Denies snoring, Denies stops breathing during sleep, Denies weakness, Denies weight gain and Denies weight loss Eyes Denies loss of vision ENT Denies dizziness and Denies hearing loss Card Denies chest pain, Denies claudication, Denies leg edema, Denies lightheadedness, Denies palpitations, Denies dyspnea, Denies dyspnea on exertion and Denies orthopnea Resp Denies cough, Denies excessive phlegm production, Denies dyspnea, Denies dyspnea on exertion, Denies snoring and Denies wheezing GI Denies abdominal pain, Denies hematochezia, Denies change in bowel habits, Denies nausea and Denies vomiting Denies dysuria and Denies urinary frequency Musc Denies arthralgias, Denies muscle weakness and Denies numbness Skin/Breast Denies nail changes and Denies rash Neuro Denies Abnormal speech present, Denies dizziness, Denies frequent falls, Denies loss of vision, Denies memory loss, Denies numbness and Denies weakness Psych Denies depression and Denies memory loss Endo Denies fatigue and Denies palpitations Grant/Lymph Reports easy bruising and Reports other (anemia) Aller/Immun Denies wheezing Physical Exam Vital Signs: Last Vital Signs Pulse 70 05/22/25 08:55 BP 122/80 05/22/25 08:55 BMI result Body Mass Index 27.2 Const General: cooperative, comfortable, no acute distress, well developed, alert, awake and Physically active Nutritional Appearance: average body habitus and well nourished Orientation/consciousness: patient oriented x3 Limitations: no limitations HEENT Head: Yes normocephalic and Yes atraumatic Neck Neck: Yes trachea midline, Yes supple and Yes no JVD Resp Effort & Inspection: normal respiratory effort Auscultation: clear to auscultation bilaterally Cardio Jugular venous distension: no JVD Palpation: normal PMI Rate: regular rate Rhythm: regular rhythm Heart sounds: S1 normal heart sound present, S2 normal heart sound present, no click, no gallops, no murmurs and no rubs GI Auscultation: normal bowel sounds Skin General skin exam: no rashes or lesions noted Neuro General: patient oriented x3 and no focal motor deficits Speech: No Abnormal speech present Extrem General: Yes no clubbing, cyanosis or edema Psych Appearance: grossly normal Affect: Anxious affect present Assessment & Plan Assessment & Plan (1) PVCs (premature ventricular contractions): Code(s): I49.3 - Ventricular premature depolarization Category: Medical Plan: Highly symptomatic PVCs but with very rare frequency in this young man with normal structure of the heart with no evidence of myocardial ischemia at high workload as well as normal LV and RV systolic function. This was clearly triggered by his experimentation with cocaine. Since then he has completely abstained from caffeine, alcohol as well as any other stimulant use. I had a long discussion with the about pathophysiology of PVCs especially very rare frequency and normal structure of the heart. This carries extremely benign prognosis and does not affect his long-term outcome. This was discussed with him. He continues to remain anxious about it although I did say that this will eventually passed. I have advised him to continue to avoid stimulants. He has developed side effects to metoprolol therapy and benefit of metoprolol therapy to treat benign PVCs with normal structure of the heart he is extremely low. This was discussed with him. Will taper and discontinue metoprolol therapy. We have advised to participate in more stress mitigation strategies such as meditation and yoga. There is no restriction to his overall activity level. He can participate in physical activity as tolerated. (2) HTN (hypertension): Code(s): I10 - Essential (primary) hypertension Category: Medical Plan: Prior history of elevated blood pressure readings today very well normalized after modifying his diet and avoidance of alcohol and caffeine use as well as lowering his salt intake. He is encouraged to continue maintain healthy lifestyle and was salt in his diet. Advised to monitor hydration and maintain adequate hydration. No pharmacotherapy is indicated. Will follow up in the clinic if need be. Thank you for allowing me to partake in his care Medications: Changed From buspirone 10 mg PO BID 30 days 60 tabs 4RF To buspirone 7.5 mg PO BID Coding Level of Care Code New Pt Level 4 (35676) Complex EM visit Add On G2211 Diagnoses PVCs (premature ventricular contractions) I49.3 HTN (hypertension) I10
--- OUTSIDE RECORDS SUMMARY | 2025-05-22 09:16 | XMS_ITS | Clinical Summary ---
Author Organization [facility] Address [facility] [employer] [facility] [address] [place] [phone] Phone Care Team Providers Care Supervisor [employer] Name Role Phone Jones Gatica NP Primary Care Provider + Social History Tobacco Use Types Packs/Day Years Used Date Smoking Tobacco: Never Assessed Education Answer Date Recorded Are you interested in more education? Not on lc e 04/26/2025 Are you concerned about learning? Not on file 04/26/2025 No 04/26/2025 No 04/26/2025 Digital Access Answer Date Recorded No 04/26/2025 No 04/26/2025 Reliable internet access at home? Not on file 04/26/2025 Device with a working camera? Not on file Sex and Gender Information Value Date Recorded Sex Assigned at Not on file Legal Sex Male 2:41 PM EDT Gender Identity Not on file Sexual Orientation Not on file Plan of Treatment Upcoming Encounters Date Type Department Care Team (Late st Contact Info) Description 06/26/2025 9:20 AM EDT Office Visit [facility] [address] [place] [address] Unknown, Unknown, Beny Sharma MD [address] [place] [address] 09/10/2025 2:15 PM EST Office Visit [facility] [address] [place] [address] Rob Osullivan, DO [address] [facility], [address] [place] [address] [email or web address] Health Maintenance Due Date Last Done Comments Adult Td,Tdap Booster 1990 DEPRESSION SCREENING 2002 SMOKING Hx and SMOKELESS TOB ACCO SCREENING 2003 HEPATITIS C SCREENING 2008 HIV ONE-TIME SCREENING (18-6 5 YEARS) 2008 COVID-19 VACCINE (2023-2 5 season) 2024 HEPATITIS A VACCINES Aged Out No long er eligible based on patient's age to complete this topic HIB VACCINES Aged Out No longer eligi ble based on patient's age to complete this topic MENINGOCOCCAL VACCINES (ACWY) Aged Out No longer eligible based on patient's age to complete this topic MENINGOCOCCAL VACCINES (B) Aged Out N o longer eligible based on patient's age to complete this topic PNEUMOCOCCAL VACCINES (0-49 years) Aged Out No longer eligible based on patient's age to complete this topic Medical Devices Not on file Insurance PPO EPO [facility] PPO EPO [place] [address] [place] [address] [address] [place] [address] PPO EPO [facility] PPO EPO Care Teams Supervisor [employer] Relationship Specialty Start Date End Date Jones Gatica NP [facility] [place] [address] PCP - General Nurse Practitioner 04/26/25 Additional Source Comments The information contained in this document represents components of the legal health record. It is not the complete legal health record.[facility]
== END 2025-05-22 09:24 | disposition home or self-care (01) ==
LOC: HO.HCS 08:50
PROVIDERS: PCP Nurse Practitioner Family; Visit Provider Internal Medicine Cardiovascular Disease
DX: I49.3 Ventricular premature depolarization (principal); I10 Essential (primary) hypertension
CPT/HCPCS: 99214

== ENCOUNTER 2025-06-26 14:08 | Outpatient (REF) | payer BC, SELFPAY ==
--- OUTSIDE RECORDS SUMMARY | 2025-06-26 09:20 | XMS_ITS | Encounter Summary ---
Author Organization [facility] Address [address] [place] [phone] Phone Care Team Providers Care Deputy Controller Name Role Phone Jones Gatica NP Primary Care Provider + Encounter Details Date Type Department Care Team (Latest Contact Info) Description 06/26/2025 9:20 AM EDT Office Visit [facility] [address] [place] [phone] Unknown, Unknown, Beny Sharma MD [address] [place] [address] [email or web address] Palpitations (Primary Dx) Social History Tobacco Use Types Packs/Day Years [...] on file Sexual Orientation Not on file documented as of this encounter Last Filed Vital Signs Vital Sign Reading Time Taken Comments Blood Pressure 126/78 06/26/2025 8:51 AM EDT Pulse 67 06/26/2025 8:51 AM EDT Temperature - - Respiratory Rate - - Oxygen Saturation 96% 06/26/2025 8:51 AM EDT Inhaled Oxygen Concentration - - Weight 92.1 kg (203 lb) 06/26/2025 8:51 AM EDT Height 182.9 cm (6') 06/26/2025 8:51 AM EDT Body Mass Index 27.53 06/26/2025 8:51 AM EDT documented in this encounter Patient Instructions * Patient Instructions* Beny Michele MD - 06/26/2025 9:20 AM EDT No changes in medications or additional tests. Call if palpitations change/worsen between now and then. documented in this encounter Progress Notes * Beny Michele MD - 06/26/2025 9:20 AM EDT [facility] Note Date: 06/26/25 Patient Name: Kevin Ayon : 1990 Jones Gatica, RUSSELL [address] [facility] [address] [place] [address] Reason for visit: No chief complaint on file. Dear Dr. Gatica, I had the pleasure of seeing your patient,Kevin Ayon, in the cardiovascular clinic. This is a pleasant 34 y.o. male with history of palpitation presenting as a new consultation for palpitations. Patient reports that in December 2024, he had a significant episode of palpitations with associated nausea after noted alcohol intake and cocaine use. Palpitations were characterized by heavy pounding in his chest that gradually resolved over the next 24 hours. Since that time, he was having intermittent palpitations several times a week. He followed with cardiology ultimately undergoing ETT with mild chest heaviness and subsequent stress echo March 28 2025 with patient completing 12 min of standard Jeremias Protocol. Achieving 87% age predicted maximum heart rate without EKG changes or inducible changes by echo 3 day Holter monitor with predominant sinus rhythm and an episode of ectopic atrial rhtyhm vs. Sinus tachycardia to 112 bpm. Baseline TTE 01/23/2025 with structurally normal heart without significant valvular disease. PASP 27mmHg. He is following with a pattern hanger in [facility] and was previously on metoprolol succinate 12.5 mg twice daily. He felt that his palpitations were in fact slightly worse on metoprolol and as of last 2 to 3 weeks he has not been taking it. Symptoms have improved since that time now withself-limited episodes occurring once or twice each week. He has been worried about his exercise having previously been very active but cut back significantly since this problem arose. Additionally, he has only stop drinking any alcohol over the last 6 months. No cocaine intake. No nicotine intake. Patient otherwise denies a cardiac history. He has no contributory family history of premature coronary artery disease or sudden cardiac . He is not on any pertinent medications. There is no histo ry of exertional syncope with noncontributory past medical history. Review of Systems: A complete 10 point review of systems was performed and is as per HPI. All other systems were reviewed and are negative. Past Medical History: Patient Active Problem List Diagnosis Palpitations No past surgical history on file. Current Medications: Outpatient Encounter Prescriptions Medication Sig Abbreviated Dosage busPIRone (BUSPAR) 7.5 MG tablet Take 7.5 mg by mouth 2 (two) times a day. See instructions for application Allergies: No Known Allergies Family History: No family history on file. Social History: Physical Exam: Wt Readings from Last 3 Encounters: 06/26/25 92.1 kg (203 lb) BP Readings from Last 3 Encounters: 06/26/25 126/78 VITAL SIGNS: BP 126/78 (BP Location: Right arm, Patient Position: Sitting) Pulse 67 Ht 182.9 cm(6') Wt 92.1 kg (203 lb) SpO2 96% BMI 27.53 kg/m?? GENERAL: Well appearing 34 y.o. male sitting comfortably in the examining chair, in no apparent distress. HEENT: Sclera are non-icteric. Mucous membranes are moist. NECK: No jugular venous distention. Carotids are without bruits. CARDIOVASCULAR: Regular rate and rhythm with normal S1 and S2. No S3 or S4. No murmurs, rubs or gallops. Radial pulse 2+ bilaterally and DP pulse 2+ bilaterally. LUNGS: Clear to auscultation bilaterally without wheezing, rales, or rhonchi. ABDOMINAL: Soft, non-tender, non-distended. EXTREMITIES: Warm and well perfused, without cyanosis, clubbing, or edema. No joint swelling. PSYCHIATRIC: Normal mood and affect. NEUROLOGIC: Alert and oriented x3. Moving all 4 extremities appropriately. SKIN: No jaundice or rashes noted in arms or face. Laboratory Data: No results found for: WBC , HGB , HCT , PLT No results found for: NA , K , CL , CO2 , BUN , CSFGLU , CRE , UCRE , CREATPOC , CREATINE , CAFL , GLU , CA , GFR , ANION No results found for: CHOL No results found for: HDL No results found for: LDL1 , LDL2 , LDL3 , LDL4 , LDLCAL , LDL , LDLDIR , DIRLDL No results found for: TRIG No components found for: HBCA1C Please consider using the newly developed race-neutral PREVENT score to determine CVD risk: https:// professional.heart.org/en/kjzbscxwhi-hqs-wdfjniisny/prevent-calculator The ASCVD Risk score ([place] DK, et al., 2019) failed to calculate for the following reasons: The 2019 ASCVD risk score is only valid for ages 40 to 79 Cardiac Diagnostics: ECG - Normal sinus rhythm Normal ECG No results found for this or any previous visit from the past 182 days 15 hours. Cardiac Stress Test History (5yr) (06/27/20 to 06/26/25) Cardiac Catheterization History (07/01/05 to 06/26/25) Assessment: Kevin Ayon is a pleasant 34 y.o. male with 1. Palpitations Plan: Problem List Items Addressed This Visit Palpitations - Primary History of palpitations in the setting of acute cocaine use. Status post negative ischemic evaluation with instruction normal heart and low burden of PVCs/PACs by 3-day Holter monitor. Seldom episodeof ectopic atrial rhythm. Now abstaining from recreational drugs and alcohol intake symptoms are much improved. No longer taking metoprolol. He thinks his palpitations were slightly worse while he was take metoprolol which was likely due to rate dependency with more frequent PVCs in the setting of relative bradycardia. Of note, he had mild ED and question of Raynaud's while on a beta-lindsay. At this time, I am reassured by the patient's workup and his ongoing abstinence from recreational substances. I do not see any reason to initiate AV lon blocking agents with symptoms improving off metoprolol. We discussed the pathophysiology of cocaine induced cardiac arrhythmias. I congratulated him on hisexcellent abstinence. I encouraged him to resume physical activity as I see no limitations for the patient. I will plan to follow-up with him in 6 months. In the interim, I asked that he reach out should palpitations recur and we can consider a longer-term monitor either 7 versus 14 days. Relevant Orders ECG 12-LEAD (Completed) Orders Placed This Encounter Procedures ECG 12-LEAD I encouraged the patient to continue with healthy lifestyle modifications, by focusing on weight loss/maintenance through a well balanced diet and regular exercise. The patient was encouraged to call our office with any change, or evolution, of symptoms. Also counseled on calling 911 if they feel unsafe at home, or have chest pain/pressure that does not remit with rest and is associated with shortness of breath, nausea/vomiting or sweating. Thank you for allowing us to participate in the care of your patient. As always, please contact me with any further questions or updates, should they arise. Sincerely, Beny Michele MD [facility] I personally spent a total of 52 minutes on care for this patient on the date of the encounter. This includes azzb-xq-[id number] time during the visit as well as non eejj-vo-mgas time spent on chart review, documentation, and care coordination. This document was created using irrjb-ia-puls dictation software. Errors in grammar and word misinterpretation are possible. documented in this encounter Miscellaneous Notes * Assessment & Plan Note - Beny Michele MD - 06/26/2025 10:24 AM EDTAssociated Problem(s): Palpitations History of palpitations in the setting of acute cocaine use. Status post negative ischemic evaluation with instruction normal heart and low burden of PVCs/PACs by 3-day Holter monitor. Seldom episodeof ectopic atrial rhythm. Now abstaining from recreational drugs and alcohol intake symptoms are much improved. No longer taking metoprolol. He thinks his palpitations were slightly worse while he was take metoprolol which was likely due to rate dependency with more frequent PVCs in the setting of relative bradycardia. Of note, he had mild ED and question of Raynaud's while on a beta-lindsay. At this time, I am reassured by the patient's workup and his ongoing abstinence from recreational substances. I do not see any reason to initiate AV lon blocking agents with symptoms improving off metoprolol. We discussed the pathophysiology of cocaine induced cardiac arrhythmias. I congratulated him on hisexcellent abstinence. I encouraged him to resume physical activity as I see no limitations for the patient. I will plan to follow-up with him in 6 months. In the interim, I asked that he reach out should palpitations recur and we can consider a longer-term monitor either 7 versus 14 days. documented in this encounter Plan of Treatment Upcoming Encounters Date Type Department Care Team (Late st Contact Info) Description 09/10/2025 2:15 PM EST Office Visit [facility] [address] [place] [address] Rob Osullivan DO [address] [facility], [address] [place] [address] 12/26/2025 8:40 AM EDT Office Visit [facility] [address] [place] [phone] Unknown, Unknown, Beny Sharma MD [address] [place] [address] [email or web address] documented as of this encounter Procedures Procedure Name Priority Date/Time Associated Diagnosis Comments ECG 12-LEAD Routine 06/26/2025 10:25 AM EDT Palpitations documented in this encounter Results * ECG 12-LEAD (06/26/2025 10:25 AM EDT) Narrative EXTERNAL NON-INTERFACED REF LAB - 06/26/2025 10:25 AM EDT Type of EKG: Standard. Global ([id number]). Notes Normal sinus rhythm Normal ECG us Beny Michele MD ECG ORDERABLES Final Result EXTERNAL NON-INTERFACED REF LAB documented in this encounter Visit Diagnoses Diagnosis Palpitations- Primary documented in this encounter Care Teams Deputy Controller Relationship Specialty Start Date End Date Jones Gatica NP [address] [facility] [place] [address] PCP - General Nurse Practitioner 04/26/25 documented as of this encounter Additional Source Comments The information contained in this document represents components of the legal health record. It is not the complete legal health record.[facility]
--- OUTSIDE RECORDS SUMMARY | 2025-06-26 15:20 | XMS_ITS | Clinical Summary ---
Author Organization [facility] Address [address] [facility] [address] [place] [address] Phone Care Team Providers Care Hand Roller Name Role Phone Jones Gatica NP Primary Care Provider + Allergies No known active allergies Medications busPIRone (BUSPAR) 7.5 MG tablet Take 7.5 mg by mouth 2 (two) times a day. Active Active Problems Problem Noted Date Diagnosed Date Palpitations 06/26/2025 Assessment & Plan (06/26/2025 10:24 AM EDT): History of palpitations in the setting of acute cocaine use. Status post negative ischemic evaluation with instruction normal heart and low burden of PVCs/PACs by 3-day Holter monitor. Seldom episode of ectopic atrial rhythm. Now abstaining from recreational [...] induced cardiac arrhythmias. I congratulated him on his excellent abstinence. I encouraged him to resume physical activity as I see no limitations for the patient. I will plan to follow-up with him in 6 months. In the interim, I asked that he reach out should palpitations recur and we can consider a longer-term monitor either 7 versus 14 days. Encounters Date Type Department Care Team Description 06/26/2025 9:20 AM EDT Office Visit [facility] [address] [place] [address] Unknown, Unknown, Beny Sharma MD Palpitations (Primary Dx) from Last 3 Months Social History Tobacco Use Types Packs/Day Years [...] on file Sexual Orientation Not on file Last Filed Vital Signs Vital Sign Reading [...] Mass Index 27.53 06/26/2025 8:51 AM EDT Plan of Treatment Upcoming Encounters Date Type Department Care Team (Late st Contact Info) Description 09/10/2025 2:15 PM EST Office Visit [facility] [address] [place] [address] Rob Osullivan DO [address] [facility], [address] [place] [address] 12/26/2025 8:40 AM EDT Office Visit [facility] [address] [place] [address] Unknown, Unknown, Beny Sharma MD [address] [place] [address] [email or web address] Health Maintenance Due Date Last Done Comments Adult Td,Tdap Booster 1990 DEPRESSION SCREENING 2002 SMOKING Hx and SMOKELESS TOB ACCO SCREENING 2003 HEPATITIS C SCREENING 2008 HIV ONE-TIME SCREENING (18-6 5 YEARS) 2008 INFLUENZA VACCINE (#1) 2025 COVID-19 VACCINE (2023-2 5 season) 2025 HEPATITIS A VACCINES Aged Out No long [...] this topic Medical Devices Not on file Procedures Procedure Name Priority Date/Time Associated Diagnosis Comments ECG 12-LEAD Routine 06/26/2025 10:25 AM EDT Palpitations from Last 3 Months Results * ECG 12-LEAD (06/26/2025 10:25 AM EDT) Narrative EXTERNAL NON-INTERFACED REF LAB - 06/26/2025 10:25 AM EDT Type of EKG: Standard. Global (93974). Notes Normal sinus rhythm Normal ECG us Beny Michele MD ECG ORDERABLES Final Result EXTERNAL NON-INTERFACED REF LAB from Last 3 Months Insurance BLUE CROSS OUT OF STATE PPO [place] STATE PPO [place] OUT [place] STATE [place]PO [place] OUT [place] STATE PPO BL[employer] [place] OUT OF STATE PPO [employer] OUT OF STATE PPO Care Teams Hand Roller Relationship Specialty Start Date End Date Jones Gatica NP [address] [facility] [place] [address] PCP - General Nurse Practitioner 04/26/25 Additional Source Comments The information contained in this document represents components of the legal health record. It is not the complete legal health record.[facility]
== END 2025-06-26 14:09 | disposition home or self-care (01) ==
LOC: HO.XRAY 14:08
PROVIDERS: Visit Provider Nurse Practitioner Family
DX: Z13.89 Encounter for screening for other disorder (principal)

== ENCOUNTER 2025-07-29 07:46 | Outpatient (AMB) | payer BC, SELFPAY ==
--- OUTSIDE RECORDS SUMMARY | 2025-07-29 07:49 | XMS_ITS | Clinical Summary ---
Author Organization [facility] Address [address] [place] [address] [place] [phone] Phone Care Team Providers Care Supervisor Cigarette Making Department Name Role Phone Jones Gatica NP Primary Care Provider + Allergies No known active allergies Medications busPIRone (BUSPAR) 7.5 MG tablet Take 7.5 mg by mouth 2 (two) times a day. Active metoprolol succinate (TOPROL-XL) 25 MG 24 hr tablet Take 0.5 tablets by mouth 2 (two) times a day. 06/03/2025 Active Active Problems Problem Noted Date Diagnosed [...] Encounters Date Type Department Care Team Description 07/18/2025 8:30 AM EDT [facility] [address] [place] [address] Megan Pelletier NP Encounter related to worker's compensation claim (Primary Dx) 07/10/2025 9:00 AM EDT Office Visit [facility] [address] [place] [address] Kelsea Tellez PA-C Forearm strain, right, initial encounter (Primary Dx); Encounter related to worker's compensation claim 06/26/2025 9:20 AM EDT Office Visit [facility] [address] [place] [phone] Unknown, Unknown, Beny Sharma MD Palpitations (Primary [...] Sign Reading Time Taken Comments Blood Pressure 132/82 07/18/2025 8:43 AM EDT Pulse 63 07/18/2025 8:43 AM EDT Temperature 36.7 C (98 F) 07/18/2025 8:43 AM EDT Respiratory Rate 16 07/18/2025 8:43 AM EDT Oxygen Saturation 98% 07/18/2025 8:43 AM EDT Inhaled Oxygen Concentration - - Weight 92.1 kg (203 lb) 06/26/2025 8:51 AM EDT Height 182.9 cm (6') 06/26/2025 8:51 AM EDT Body Mass Index 27.53 06/26/2025 8:51 AM EDT Plan of Treatment Upcoming Encounters Date Type Department Care Team (Late st Contact Info) Description 07/30/2025 11:30 AM EST Office Visit [facility] [address] [place] [address] Ester Iqbal, [facility] [address] [place] [address] [email or web address] 09/10/2025 2:15 PM EST Office Visit [facility] [address] [place] [address] Rob Osullivan DO [address] [facility], [address] [place] [address] 12/26/2025 8:40 AM EDT Office Visit [facility] [address] [place] [address] Unknown, Unknown, Beny Sharma MD [address] [place] [address] Health Maintenance Due Date Last Done Comments Adult Td,Tdap Booster 1990 DEPRESSION SCREENING 2002 SMOKING Hx and SMOKELESS TOB ACCO SCREENING 2003 HEPATITIS C SCREENING 2008 HIV ONE-TIME SCREENING (18-6 5 YEARS) 2008 INFLUENZA VACCINE (#1) 2025 COVID-19 VACCINE ( - 2024-2 6 season) 2025 HEPATITIS A VACCINES Aged Out [...] AM EDT Type of EKG: Standard. Global (34076). Notes Normal sinus rhythm Normal ECG Beny Michele MD ECG ORDERABLES Final Result Performing Organization Address City/State/[facility] Co de Phone Number EXTERNAL NON-INTERFACED REF LAB from Last [address] [place] [address] [address] [place] [address] PPO [facility] PPO BLUE CROSS OUT OF STATE PPO BL[employer]OSS OUT OF STATE PPO BLUE CROSS OUT OF STATE PPO [facility] PPO WORKERS COMPENSATION WORKERS COMPENSATION Care Teams Supervisor Cigarette Making Department Relationship Specialty Start Date End Date Jones Gatica NP [facility] [place] [address] PCP - General Nurse Practitioner 04/26/25 Additional Source Comments The information contained in this document represents components of the legal health record. It is not the complete legal health record.[facility]
--- NOTE | 2025-07-29 08:00 | A.OFFVIS_ITS ---
Intake Visit Reasons: renal cyst Intake Note: Patient is present for RENAL CYST Urology Medication:NONE Antibiotic Allergy:NONE Blood Thinner:NONE TODAY'S PVR:0ML'S Food Taster Required: No Allergies No Known Allergies Allergy (Verified 07/29/25 08:01) HPI Comments Details: Kevin is a 34-year-old male patient of Dr. Ryan. He has a past medical history of GERD, hypertension, and headaches. He presents to the office today as a new patient for renal cyst. In discussion with the patient today he reports having followed up with his PCP regarding left upper abdominal quadrant pain he had been experiencing at which time a abdominal ultrasound was ordered and performed. These results were reviewed and communicated with the patient today. 04/19 no acute abdominal disease. Relatively small left kidney compatible with a degree of atrophy. There is a 1 cm simple appearing right renal cyst. He reports over the last month he has been having intermittent epis odes of left-sided flank pain and lower urinary tract symptoms. He describes these episodes as variable. In office urinalysis results reviewed with the patient today trace microscopic hematuria otherwise within normal limits. When asked he does report a previous history of nicotine dependence. He reports smoking, vaping, and utilizing nicotine pouches for approximately 9 years in total. He has been smoke-free for the last 4 years. He reports when he was smoking he smoked approximately 1 pack of cigarettes per day. He reports lower urinary tract symptoms of intermittent weak urinary stream, feeling of incomplete bladder emptying, and bladder pressure. He denies gross/visible hematuria, dysuria, foul smelling urine, fever, and or chills. We did discussed potential causes of lower urinary tract symptoms, microscopic hematuria, renal cysts, and atrophic kidney. We discussed obtaining CT urogram for further assessment evaluation. All questions were answered. He otherwise offers no other issues or concerns at this time. [facility] Medical History HTN (hypertension) Pain of left upper extremity GERD (gastroesophageal reflux disease) Headache Family History Father No problems noted. Mother No problems noted. Maternal Grandmother Diabetes Social History Housing: House Patient Tobacco Use Status: Former Tobacco user e-Cigarette/Vaping Use: Former Use Substance Use Type: Crack/Cocaine and Marijuana service: No Current occupational status: employed Cognitive needs: No Hearing needs: No Vision needs: No Review of Systems Const All systems reviewed & are unremarkable except as noted in HPI and below Physical Exam Const General: cooperative, healthy appearing, comfortable, no acute distress, well developed, alert and awake Orientation/consciousness: patient oriented x3 Limitations: no limitations HEENT Head: Yes normal to inspection, Yes normocephalic and Yes atraumatic Ears: hearing grossly normal bilaterally Eyes General: appearance normal, both eyes and all related structures Neck Neck: Yes normal visual inspection and Yes trachea midline Chest Chest palpation & inspection: normal inspection of the chest Resp Effort & Inspection: normal respiratory effort and able to speak in complete sentences Cardio Rate: regular rate GI Inspection: Yes normal to inspection General: Yes no CVA tenderness Back/Spine/Pelvis Back: no CVA tenderness Skin General skin exam: no rashes or lesions noted Neuro General: patient oriented x3 Extrem General: Yes normal to inspection Psych Appearance: grossly normal and well kempt Mental Status: mental status grossly normal Speech and movement: Normal speech and movement present and Clear speech present Affect: normal affect Attitude: cooperative Thought process: Normal thought process present Thought content: Normal thought content present Insight: Fair insight present (Psych) Judgement: Fair judgement present (Psych) Office Procedures Post Void Residual Post Residual Void Post Void Residual (PVR): 0 [id number] Void Residual by ultrasound Results AMB Urinalysis, Automated UA Leukoctes 0 Marlen/uL Last Edit by WILBERT Tsang on 07/29/25 08:16 UA Nitrite Negative Last Edit by WILBERT Tsang on 07/29/25 08:16 UA Urobilinogen 0.2 mg/dL Last Edit by WILBERT Tsang on 07/29/25 08:1 6 UA Protein 0 mg/dL Last Edit by WILBERT Tsang on 07/29/25 08:16 UA pH 6.5 Last Edit by WILBERT Tsang on 07/29/25 08:16 UA Blood 10 Johnny/uL Last Edit by WILBERT Tsang on 07/29/25 08:16 UA Specific [place] 1.010 Last Edit by WILBERT Tsang on 07/29/25 08: 16 UA Ketone Negative Last Edit by WILBERT Tsang on 07/29/25 08:16 UA Bilirubin 0 mg/dL Last Edit by WILBERT Tsang on 07/29/25 08:16 UA Glucose 0 mg/dL Last Edit by WILBERT Tsang on 07/29/25 08:16 Results Reviewed Results Reviewed: Laboratory Last Values Urine pH (Auto) 6.5 07/29/25 08:16 Specific [place] (Auto) 1.010 07/29/25 08:16 Urine Protein (Auto) 0 mg/dL 07/29/25 08:16 Glucose (UA)(Auto) 0 mg/dL 07/29/25 08:16 Urine Ketones (Auto) Negative 07/29/25 08:16 Urine Blood (Auto) 10 Johnny/uL 07/29/25 08:16 Urine Nitrite (Auto) Negative 07/29/25 08:16 Urine Bilirubin (Auto) 0 mg/dL 07/29/25 08:16 Urine Urobilinogen (Auto) 0.2 mg/dL 07/29/25 08:16 Leukocyte Esterase (Auto) 0 Marlen/uL 07/29/25 08:16 Date of Service: 04/17/25 Procedure(s): US abdomen complete Findings: The visualized pancreas is normal. The aorta and inferior vena cava are normal caliber. The liver is normal in size and echotexture. There is no intrahepatic bile duct dilatation. The common duct is 3 mm in diameter. The gallbladder is normal. There is no sonographic Boudreaux sign. The main portal vein is antegrade. The right kidney is 12.3 cm in length. A 1 cm simple appearing cyst is incidentally noted within the right kidney. The left kidney is 8.3 cm in length. The spleen is normal. No ascites. IMPRESSION: 1. No acute abdominal disease. 2. Relatively small left kidney compatible with a degree of atrophy. Assessment & Plan Assessment & Plan (1) Renal cyst: Code(s): N28.1 - Cyst of kidney, acquired Category: Medical (2) Small kidney: Code(s): N27.9 - Small kidney, unspecified Category: Medical (3) Flank pain: Code(s): R10.9 - Unspecified abdominal pain Category: Medical (4) Microscopic hematuria: Code(s): R31.29 - Other microscopic hematuria Category: Medical (5) Nicotine dependence in remission: Code(s): F17.201 - Nicotine dependence, unspecified, in remission Category: Medical (6) Lower urinary tract symptoms: Code(s): R39.9 - Unspecified symptoms and signs involving the genitourinary system Category: Medical Plan In office urinalysis results reviewed with the patient today; as noted above; will send for urine cytology. PVR 0 mL Most recent abdominal ultrasound results reviewed with the patient today; as noted above. We did discussed potential causes of atrophic kidney, renal cysts, microscopic hematuria, and lower urinary tract symptoms patient is experiencing; we discussed further interventions and risks and benefits of these interventions. All questions were answered. We discussed obtaining CT urogram for further assessment evaluation. BUN and creatinine ordered for imaging. We did discuss near future in office cystoscopy and or urodynamics for further assessment evaluation. Follow-up in 1-3 months with imaging and labs; or sooner with any issues, concerns, and or questions. Orders: Orders AMB Urinalysis Automated Today Z13.9 - Encounter for screening, unspecified Creatinine Today R39.15 - Urgency of urination Urine Cytology Today R31.29 - Other microscopic hematuria CT urogram Today R31.0 - Gross hematuria Blood Urea Nitrogen Today R39.15 - Urgency of urination Patient Instructions: The patient had an opportunity to ask questions regarding the treatment plan. All questions were answered. Physical exam, labs, and imaging were discussed and reviewed in detail. As well as risks, benefits, and discussion of treatment choices. No major barriers to understanding were identified. The patient expressed understanding and agreement with the above treatment plan. The patient was made aware they should contact our office by phone for worsening of their current condition, the appearance of new symptoms, or with any questions or concerns. Compliance is encouraged with any medications and follow up testing that is ordered. It is a privilege to be allowed the opportunity to participate in? your urological care.? Again, if you have any questions or concerns If you have any questions or concerns please do not hesitate to contact me. The office is [phone]. This note is constructed using voice recognition software. While every effort has been made to ensure accuracy rehab specialist errors may have been included. Yours sincerely, Ofe Childress, SECURITY COMPLIANCE ENGINEER- Coding Level of Care Code New Pt Level 3 (98678) Diagnoses Renal cyst N28.1 Small kidney N27.9 Flank pain R10.9 Microscopic hematuria R31.29 Nicotine dependence in remission F17.201 Lower urinary tract symptoms R39.9 CPT Codes Post Residual Void - PVR CPT Code: 12078-[id number] Void Residual by ultrasound ([id number])
== END 2025-07-29 09:25 | disposition home or self-care (01) ==
LOC: HO.HUSH 07:46
PROVIDERS: PCP Nurse Practitioner Family; Visit Provider Nurse Practitioner Family
DX: N28.1 Cyst of kidney, acquired (principal); N27.9 Small kidney, unspecified; R10.9 Unspecified abdominal pain; R31.29 Other microscopic hematuria; F17.201 Nicotine dependence, unspecified, in remission; R39.9 Unspecified symptoms and signs involving the genitourinary system; Z13.9 Encounter for screening, unspecified
CPT/HCPCS: 99203

== ENCOUNTER 2025-07-29 07:46 | Outpatient (REF) | payer BC, SELFPAY | END 2025-07-29 07:47 | disposition home or self-care (01) | LOC: HO.LAB 07:46 | PROVIDERS: PCP Nurse Practitioner Family; Visit Provider Nurse Practitioner Family | DX: N28.1 Cyst of kidney, acquired (principal); R31.29 Other microscopic hematuria; R39.15 Urgency of urination; R39.9 Unspecified symptoms and signs involving the genitourinary system; F17.201 Nicotine dependence, unspecified, in remission; N27.9 Small kidney, unspecified; R10.9 Unspecified abdominal pain | CPT/HCPCS: 51798; 81003; 88112 ==

== ENCOUNTER 2025-07-30 07:42 | Outpatient (REF) | payer BC, SELFPAY ==
--- NOTE | ~2025-07-30 | FL_ITS ---
EXAMINATION: FLUOROSCOPY BARIUM SWALLOW CLINICAL INFORMATION: Dysphagia COMPARISON: None. TECHNIQUE: Under fluoroscopy, effervescent granules, thick and thin barium,, and a barium pill were administered orally and transit through the esophagus was observed. Additional radiographic images were obtained. FLUOROSCOPY TIME: 1 minute 10 seconds DOSE AREA PRODUCT: 60 uGy-m2 (microgray-meters squared) FINDINGS Swallowing: Normal. Normal swallowing reflex. Normal motility. No penetration or aspiration events occurred throughout the duration of the study. Esophagus: Normal caliber and motility.. No esophageal mass or ulceration. No fixed stricture is seen. Patient swallowed a barium pill, which traversed the esophagus and GE junction without difficulty. Gastroesophageal Reflux: None. No spontaneous reflux noted during the examination. Stomach: No evidence of hiatal hernia. FL/FL barium swallow with air IMPRESSION: No significant abnormality identified by barium study. Electronically signed by: Ludwig Jean MD 07/30/2025 03:39 PM [facility]
--- OUTSIDE RECORDS SUMMARY | 2025-07-30 07:45 | XMS_ITS | Clinical Summary ---
Author Organization [facility] Address [address] [facility] [address] [place] [address] Phone Care Team Providers Care Enrobing Machine Operator Name Role Phone Jones Gatica NP Primary [...] Office Visit [facility] [address] [place] [address] Megan Pelletier NP Encounter related to worker's compensation claim (Primary Dx) 07/10/2025 9:00 AM EDT Office Visit [facility] [address] [place] [address] Kelsea Tellez PA-C Forearm strain, right, initial encounter (Primary Dx); Encounter related to worker's compensation claim 06/26/2025 9:20 AM EDT Office Visit [facility] [address] [place] [phone] Unknown, Unknown, Beny Sharma MD Palpitations (Primary [...] Office Visit [facility] [address] [place] [address] Ester Iqbal, [facility] [address] [place] [address] [email or web address] 09/10/2025 2:15 PM EST Office Visit [facility] [address] [place] [address] Rob Osullivan DO [address] [facility], [address] [place] [address] 12/26/2025 8:40 AM EDT Office Visit [facility] [address] [place] [address] Unknown, Unknown, Beny Sharma MD [address] [place] [address] Health Maintenance Due Date Last Done Comments [...] AM EDT Type of EKG: Standard. Global (53920). Notes Normal sinus rhythm Normal ECG Beny Michele MD ECG ORDERABLES Final Result Performing Organization Address City/State/[facility] Co de Phone Number EXTERNAL NON-INTERFACED REF LAB from Last [address] [place] [address] PPO [place] OUT [facility] PPO BLUE CROSS OUT OF STATE PPO BLUE CROSS OUT OF STATE PPO BLUE CROSS OUT OF STATE PPO [facility] PPO WORKERS COMPENSATION WORKERS COMPENSATION Care Teams Enrobing Machine Operator Relationship Specialty Start Date End Date Jones Gatica NP [facility] [place] [address] PCP - General Nurse Practitioner 04/26/25 Additional Source Comments The information contained in this document represents components of the legal health record. It is not the complete legal health record.[facility]
== END 2025-07-30 07:43 | disposition home or self-care (01) ==
LOC: HO.XRAY 07:42
PROVIDERS: PCP Nurse Practitioner Family; Visit Provider Nurse Practitioner Family
DX: R13.10 Dysphagia, unspecified (principal)
CPT/HCPCS: 74221

== ENCOUNTER → 2025-07-30 07:42 | Outpatient (BNV) | payer BC, SELFPAY | PROVIDERS: PCP Nurse Practitioner Family; Visit Provider Radiology Diagnostic Ultrasound | DX: R10.13 Epigastric pain (principal) | CPT/HCPCS: 74221 ==